=== PATIENT | female | born 1980 | race Caucasian/White ===

== ENCOUNTER → 2022-08-22 10:17 | Outpatient (BNVA) | payer MEDICARE, SELFPAY | PROVIDERS: Visit Provider Family Medicine | DX: I10 Essential (primary) hypertension (principal); E11.9 Type 2 diabetes mellitus without complications | CPT/HCPCS: 80053; 80061; 83036; 84439; 84443; 85025 ==

== ENCOUNTER → 2022-12-08 09:59 | Outpatient (BNVA) | payer MEDICARE, MEDICAID, SELFPAY | PROVIDERS: Visit Provider Nurse Practitioner Family | DX: E03.9 Hypothyroidism, unspecified (principal); E11.9 Type 2 diabetes mellitus without complications | CPT/HCPCS: 80053; 81000; 84443; 85025 ==

== ENCOUNTER → 2023-02-13 08:43 | Outpatient (BNVA) | payer MEDICARE, MEDICAID, SELFPAY | PROVIDERS: PCP Family Medicine; Visit Provider Family Medicine | DX: E03.9 Hypothyroidism, unspecified (principal); E11.9 Type 2 diabetes mellitus without complications; G43.909 Migraine, unspecified, not intractable, without status migrainosus | CPT/HCPCS: 80053; 83036; 84439; 84443 ==

== ENCOUNTER → 2023-02-22 14:33 | Outpatient (BNVA) | payer MEDICARE, MEDICAID, SELFPAY | PROVIDERS: PCP Family Medicine; Referring Provider Family Medicine; Visit Provider Nurse Practitioner Family | DX: L05.91 Pilonidal cyst without abscess (principal); L73.2 Hidradenitis suppurativa; D22.5 Melanocytic nevi of trunk; L81.4 Other melanin hyperpigmentation | CPT/HCPCS: 99204 ==

== ENCOUNTER → 2023-03-07 10:16 | Outpatient (BNVA) | payer MEDICARE, MEDICAID, SELFPAY | PROVIDERS: PCP Family Medicine; Visit Provider Psychiatry & Neurology Neurology | DX: Z87.828 Personal history of other (healed) physical injury and trauma (principal) | CPT/HCPCS: 99203 ==

== ENCOUNTER → 2023-03-13 12:33 | Outpatient (BNVA) | payer MEDICARE, MEDICAID, SELFPAY | PROVIDERS: PCP Family Medicine; Referring Provider Nurse Practitioner Family; Visit Provider Surgery | DX: L73.2 Hidradenitis suppurativa (principal); L05.91 Pilonidal cyst without abscess | CPT/HCPCS: 99204 ==

== ENCOUNTER 2023-04-29 14:25 | Emergency (ER) | payer MEDICARE, MEDICAID, SELFPAY ==
--- NOTE | 2023-04-29 14:31 | ECG_ITS ---
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 Measurements Intervals [place] Rate: 86 P: 53 TN: 149 QRS: 66 QRSD: 89 T: 63 QT: 333 QTc: 399 Interpretive Statements SINUS RHYTHM LOW QRS VOLTAGE IN PRECORDIAL LEADS [QRS DEFLECTION < 1.0 mV IN CHEST LEADS] No previous ECG available for comparison Electronically Signed On 04-30-2023 16:26:05 PATENT LAWYER by Sascha Walls M.D. [id number]
--- NOTE | 2023-04-29 14:31 | XRR_ITS ---
PROCEDURE INFORMATION: Exam: XR Chest Exam date and time: 04/29/2023 2:43 PM Age: 42 years old Clinical indication: Chest wall pain; Patient HX: Chest pain TECHNIQUE: Imaging protocol: Radiologic exam of the chest. Views: 1 view. COMPARISON: No relevant prior studies available. FINDINGS: Lungs: Unremarkable. No consolidation. Pleural spaces: Unremarkable. No pleural effusion. No pneumothorax. Heart/Mediastinum: Unremarkable. No cardiomegaly. Bones/joints: Unremarkable. XR/XR chest 1V portable [id number] IMPRESSION: No acute findings.
[2023-04-29 14:32] VITALS: BP 111/65; PULSE 99; RESP 18; TEMP 36.8; O2SAT 99; BMI 41.3
--- NOTE | 2023-04-29 15:05 | ED_ITS ---
HPI - General Adult 2 General: Chief complaint: Chest Pain Stated complaint: Chest Pain Time Seen by Provider: 04/29/23 14:32 Source: patient Mode of arrival: ambulatory Limitations: no limitations History of Present Illness: Patient is a 42-year-old female here for multiple medical complaints. She states she has an abscess to her left breast. She states she chronically has these that seem to come and go on their own. She does have a history of hidradenitis suppurativa. She is reporting pain all over my body and reported chest pain in triage. She states approximately 6 days ago she took an oxycodone from a family/friend off the street and feels like they were attempting to kill her because she states over the next 5 days she was in and out of it . She states that her family whom she resides with told her that she would come and go from the house (arrive, shower, change clothes, and then leave again) but patient states she does not remember any of this. 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 She states the way she feels now is the same way she felt when she overdosed on heroin. She arrives with stable vital signs. Onset (ago): day(s) Relieving factors: none Exacerbating factors: none Associated symptoms: Deny chest pain, dyspnea, headache(s), malaise, nausea, palpitations, syncope or vomiting Treatments prior to arrival: none Review of Systems 2 Const: Reports: body aches; Denies: fever(s), chills, fatigue or malaise Eyes: Denies: change in vision, blurry vision, photophobia, floaters or seeing flashes ENMT: Denies: throat pain, odynophagia, ear or mastoid pain, nasal discharge, nasal congestion or sinus pain Card: Reports: swelling of feet/ankles; Denies: chest pain, palpitations, lightheadedness, syncope, pre-syncope, dyspnea on exertion, orthopnea, leg pain with exertion or acrocyanosis Resp: Denies: dyspnea, productive cough, non-productive cough, wheezing, pain on inspiration, hemoptysis or chest congestion GI: Denies: abdominal pain, nausea, vomiting or diarrhea : Denies: flank pain, difficulty voiding, dysuria, urinary frequency or urinary urgency Musc: Reports: extremity pain and extremity swelling; Denies: neck pain, back pain, joint pain or joint swelling Skin/Breast: Reports: other (abscess to L breast) Neuro: Denies: headache(s), numbness in extremities, weakness in extremities or sensory changes PFSH ED 2 PFSH: Medical History History of gallbladder disease Abdominal pain Type 2 diabetes mellitus Depression Anxiety Hypertension Hypercholesteremia Hidradenitis suppurativa Neuropathy Asthma Surgical History History of tonsillectomy History of surgery on lower extremity Family History Grandmother No problems noted. Grandfather Cancer Maternal-colon Father Cancer, Onset Age: 49 pancreatic Family/Other Cancer Maternal aunt-breast and bone Other Bleeding disorder Dementia Diabetes Hyperlipidemia Hypertension Lung disease Stroke Denies family history of CAD (coronary artery disease) Clotting disorder Psychiatric illness Chronic kidney disease (CKD) Anesthesia complication Social History Smoking and tobacco/nicotine status: current some day tobacco/nicotine user Alcohol intake: never Substance/Drug Use: former Lives independently: Yes Marital status: Number of children: 2 Current occupational status: employed and disabled Current occupation: [employer] Special izaiah needs: No Agree to transfusion: Yes Physical Exam 2 Const: COMMON NORMALS: patient oriented x3, no limitations, alert and well nourished GENERAL APPEARANCE: cooperative NUTRITIONAL APPEARANCE: obese ORIENTATION/CONSCIOUSNESS: Yes awake, Yes oriented to person, Yes oriented to place and Yes oriented to time OTHER: hyperactive, fidgeting HENMT: COMMON NORMALS: normocephalic and atraumatic HEAD & SCALP: normal to inspection, normocephalic and atraumatic FACE & SINUS: normal facial exam Eye: COMMON NORMALS: Equal, round and reactive pupils present and EOMs intact bilaterally GENERAL EYE: appearance normal, both eyes and all related structures and normal light reflex PUPIL: Yes Equal, round and reactive pupils present DIRECT OPHTHALMOSCOPY: Yes normal light reflex Neck/C-Spine: COMMON NORMALS: no lymphadenopathy and no meningeal signs Chest: Breast/axilla inspection: Yes skin changes (see below) OTHER: quarter sized abscess to L medial breast with a scant amount of purulent drainage noted; no obvious underlying fluctuance Resp: COMMON NORMALS: normal respiratory effort and clear to auscultation bilaterally AUSCULTATION: clear to auscultation bilaterally Cardio: COMMON NORMALS: regular rate and regular rhythm RATE: regular rate RHYTHM: regular rhythm Back/Pelvis: COMMON NORMALS: thoracic and lumbar spine normal to inspection Extremity: COMMON NORMALS: normal to inspection, full ROM, capillary refill normal, no joint enlargement, no clubbing, cyanosis or edema, no calf tenderness and no pedal edema NARRATIVE EXTREMITY EXAM: reporting bilateral hand swelling although I do not appreciate anything clinically; she reports her hands are discolored-few areas of dusky appearance that wipes off with alcohol pad and most likely dye from her dark blue jeans; pulses throughout extremity normal GENERAL: Yes normal exam except as noted Neuro: DRU COMA SCALE: document GCS findings [place] coma scale eye opening: Spontaneous Dru coma scale verbal response: Orientated Dru coma scale motor response: Obey commands Dru coma scale total score: 15 COMMON NORMALS: patient oriented x3, CN's II-XII intact bilaterally, moves all extremities, no focal motor deficits, no sensory deficits noted and gait normal SENSORIUM/ORIENTATION: Yes alert, Yes oriented to person, Yes oriented to place and Yes oriented to time MENINGEAL SIGNS: Yes no meningeal signs Psych: OTHER: denies SI/HI Skin: COMMON NORMALS: no rashes or lesions noted NARRATIVE SKIN EXAM: several scabs, picked scabs, and scars GENERAL SKIN EXAM: no rashes or lesions noted Course 2 Vital Signs: Vital signs: Vital Signs Temperature 98.3 F 04/29/23 14:32 Pulse Rate 83 04/29/23 15:56 Respiratory Rate 18 04/29/23 14:32 Blood Pressure 125/74 04/29/23 15:56 Pulse Oximetry 100 04/29/23 15:56 Oxygen Delivery Me thod Room Air 04/29/23 15:56 [facility] - General Adult Medical Decision Making Patient arrives in no acute distress with stable vital signs. She is hyperactive and fidgety. Blood work overall is nonactionable. Her tox screen is positive for amphetamines and marijuana. CXR and EKG are unremarkable. She did have a draining left breast abscess. Culture obtained. She will be placed on doxycycline. Return ED precautions given. She is stable for discharge. Medical Records I reviewed the patient's medical records. Lab Data I reviewed the patient's lab results. 04/29/23 15:44 04/29/23 15:44 Radiology Impressions Chest X-Ray 04/29/23 14:31 IMPRESSION: No acute findings. Laboratory Results WBC 10.42 10^3/uL (3.29-11.43) 04/29/23 15:44 RBC 4.96 10^6/uL (3.85-5.65) 04/29/23 15:44 Hgb 12.60 g/dL (11.27-16.99) 04/29/23 15:44 Hct 40.3 % (36-47) 04/29/23 15:44 MCV 81.3 fl (85-98) L 04/29/23 15:44 MCH 25.4 pg (27-33) L 04/29/23 15:44 MCHC 31.3 g/dL (30-55) 04/29/23 15:44 RDW 15.5 % (12.1-15.1) H 04/29/23 15:44 Plt Count 364 10^3/cmm (157-399) 04/29/23 15:44 MPV 10.3 fL (7.4-10.4) 04/29/23 15:44 Neut % (Auto) 61.4 % 04/29/23 15:44 Lymph % (Auto) 31.9 % 04/29/23 15:44 Arthur % (Auto) 4.2 % 04/29/23 15:44 Eos % (Auto) 1.9 % 04/29/23 15:44 Baso % (Auto) 0.3 % 04/29/23 15:44 Neut # (Auto) 6.40 10^3/uL (1.8-7.7) 04/29/23 15:44 Lymph # (Auto) 3.3 10^3/uL (0.8-4.8) 04/29/23 15:44 Arthur # (Auto) 0.4 10^3/uL (0.2-0.9) 04/29/23 15:44 Eos # (Auto) 0.2 10^3/uL (0.0-0.8) 04/29/23 15:44 Baso # (Auto) 0.0 10^3/uL (0.0-0.1) 04/29/23 15:44 Nucleated RBC % (auto) 0 % 04/29/23 15:44 Nucleated RBCs # 0.0 /100WBC 04/29/23 15:44 Sodium 139 mmol/L (136-145) 04/29/23 15:44 Potassium 3.4 mmol/L (3.5-5.1) L 04/29/23 15:44 Chloride 103 mmol/L (98-107) 04/29/23 15:44 Carbon Dioxide 23 mmol/L (22-29) 04/29/23 15:44 Anion Gap 16.4 (5-19) 04/29/23 15:44 BUN 4 mg/dL (6-20) L 04/29/23 15:44 Creatinine 0.8 mg/dL (0.5-0.9) 04/29/23 15:44 GFR Calculation 79.4 mL/min (90-130) L 04/29/23 15:44 Glucose 93 mg/dL (65-115) 04/29/23 15:44 Calculated Osmolality 285 mOsm/kg (285-295) 04/29/23 15:44 Calcium 9.0 mg/dL (8.5-10.5) 04/29/23 15:44 Total Bilirubin 0.5 mg/dL (0.15-1.2) 04/29/23 15:44 AST 13 U/L (0-32) 04/29/23 15:44 ALT 14 U/L (0-33) 04/29/23 15:44 Alkaline Phosphatase 66 U/L (35-105) 04/29/23 15:44 Troponin T Baseline < 6 ng/L (0-10) 04/29/23 15:44 Total Protein 7.3 g/dL (6.6-8.7) 04/29/23 15:44 Albumin 4.3 g/dL (3.5-5.2) 04/29/23 15:44 Globulin 3.0 g/dL (1.3-4.6) 04/29/23 15:44 Lipase 19 U/L (13-60) 04/29/23 15:44 HCG, Qual Negative (Negative) 04/29/23 15:44 Urine Opiates Screen Negative ng/mL (Negative) 04/29/23 15:30 Ur Barbiturates Screen Negative ng/mL (Negative) 04/29/23 15:30 Ur Phencyclidine Scrn Negative ng/mL (Negative) 04/29/23 15:30 Ur Amphetamines Screen Positive ng/mL (Negative) H 04/29/23 15:30 U Benzodiazepines Scrn Negative ng/mL (Negative) 04/29/23 15:30 Urine Cocaine Screen Negative ng/mL (Negative) 04/29/23 15:30 U Marijuana (THC) Screen Positive ng/mL (Negative) H 04/29/23 15:30 All radiology interpretation(s) finalized by discharge Discharge Plan Discharge Patient Disposition: Home Clinical Impression: Abscess of breast, Amphetamine use Condition: Stable Prescriptions: New doxycycline monohydrate 100 mg capsule 100 mg PO Q12H 7 Days Qty: 14 0RF No Action Lacto no.[id number]-larch 25B cell-25B cell-50 mg capsule PO pantoprazole [Protonix] 40 mg tablet,delayed release (DR/EC) 40 mg PO BID 60 Days Qty: 120 1RF ergocalciferol (vitamin D2) [Vitamin D2] 1,250 mcg (50,000 unit) capsule 1,250 mcg PO DAILY famotidine 20 mg tablet 20 mg PO DAILY Qty: 90 1RF aripiprazole [Abilify] 30 mg tablet 30 mg PO DAILY Qty: 90 1RF nortriptyline 50 mg capsule 50 mg PO DAILY Qty: 90 1RF atorvastatin 10 mg tablet 10 mg PO DAILY Qty: 90 1RF benztropine 1 mg tablet 1 mg PO BID Qty: 180 0RF clonidine HCl 0.2 mg tablet 0.2 mg PO BID Qty: 180 1RF fluoxetine 40 mg capsule 40 mg PO DAILY Qty: 60 1RF clindamycin phosphate 1 % solution 1 applic topical BID Qty: 60 1RF levothyroxine 112 mcg tablet 112 mcg PO DAILY Qty: 90 0RF spironolactone 50 mg tablet 50 mg PO DAILY Qty: 90 1RF buspirone 15 mg tablet 30 mg PO BID Qty: 120 0RF Nurtec ODT 75 mg tablet,disintegrating 75 mg PO ONCE PRN (Reason: migraine headache) Qty: 10 0RF gabapentin 300 mg capsule See Rx Instructions .ROUTE .COMPLEX Qty: 180 1RF Dose Instruction: TAKE 2 CAPSULES BY MOUTH TWICE DAILY Rx Instructions: TAKE 2 CAPSULES BY MOUTH TWICE DAILY albuterol sulfate 90 mcg/actuation HFA aerosol inhaler See Rx Instructions .ROUTE .COMPLEX Qty: 8.5 1RF Dose Instruction: USE ONE INHALATION BY MOUTH 4 TIMES DAILY NEEDED FOR SHORTNESS OF BREATH OR WHEEZING Rx Instructions: USE ONE INHALATION BY MOUTH 4 TIMES DAILY NEEDED FOR SHORTNESS OF BREATH OR WHEEZING budesonide-formoterol [Symbicort] 160-4.5 mcg/actuation HFA aerosol inhaler See Rx Instructions .ROUTE .COMPLEX Qty: 10.2 1RF Dose Instruction: USE ONE INHALATION BY MOUTH TWICE DAILY Rx Instructions: USE ONE INHALATION BY MOUTH TWICE DAILY Discharge Orders: Discharge ED (Routine); Ordered 04/29/23 Ordered By: Treasure Collazo Referrals: Dheeraj Sol MD [Primary Care Provider] - Patient Instructions: Abscess (ED) Activity Restrictions/Additional Instructions: As we discussed your urine drug screen today was positive for amphetamines and marijuana. We will place you on antibiotics for your left breast abscess. If this does not improve over the next 3 to 4 days you need to follow-up with your primary care provider. The Coding Level of Care Code ED Filter Tender for Marimar Nicholas
[2023-04-29 15:53] LABS: Basophils % 0.3 %; Eosinophils # 0.2 10^3/uL (0.0-0.8); Eosinophils % 1.9 %; Hematocrit 40.3 % (36-47); Lymphocytes # 3.3 10^3/uL (0.8-4.8); Lymphocytes % 31.9 %; Mean Corpuscular HGB Conc 31.3 g/dL (30-55); Mean Corpuscular Hemoglobin 25.4 pg (27-33); Mean Corpuscular Volume 81.3 fl (85-98); Mean Platelet Volume 10.3 fL (7.4-10.4); Monocytes # 0.4 10^3/uL (0.2-0.9); Monocytes % 4.2 %; Neutrophils % 61.4 %; Nucleated Red Blood Cells % 0 %; Platelet Count 364 10^3/cmm (157-399); Red Blood Count 4.96 10^6/uL (3.85-5.65); Red Cell Distribution Width 15.5 % (12.1-15.1); White Blood Count 10.42 10^3/uL (3.29-11.43)
[2023-04-29 15:56] VITALS: BP 125/74; PULSE 83; O2SAT 100
[2023-04-29 16:18] LABS: HCG, Serum Qual Negative (Negative)
[2023-04-29 16:22] LABS: Troponin(5th) Baseline < 6 ng/L (0-10)
--- NOTE | 2023-04-29 16:31 | ECG_ITS ---
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 Measurements Intervals [place] Rate: 76 P: 46 HI: 160 QRS: 55 QRSD: 90 T: 54 QT: 360 QTc: 405 Interpretive Statements SINUS RHYTHM LOW QRS VOLTAGE IN PRECORDIAL LEADS [QRS DEFLECTION < 1.0 mV IN CHEST LEADS] Compared to ECG 04/29/2023 14:32:41 No significant changes Electronically Signed On 05-01-2023 10:54:24 PLATE ROLLER by Sascha Walls M.D. [id number]
[2023-04-29 16:34] LABS: Amphetamines Screen Urine Positive (Negative); Barbiturates Screen Urine Negative (Negative); Benzodiazepines Screen Urine Negative (Negative); Cocaine Screen Urine Negative (Negative); Opiate Screen Urine Negative (Negative); PCP Screen Urine Negative (Negative); THC Screen Urine Positive (Negative)
[2023-04-29 16:53] LABS: Alanine Aminotransferase 14 U/L (0-33); Albumin Level 4.3 g/dL (3.5-5.2); Alkaline Phosphatase 66 U/L (35-105); Anion Gap 16.4 (5-19); Aspartate Amino Transferase 13 U/L (0-32); Blood Urea Nitrogen 4 mg/dL (6-20); Carbon Dioxide 23 mmol/L (22-29); Chloride 103 mmol/L (98-107); Glomerular Filtration Rate 79.4 mL/min (90-130); Glucose 93 mg/dL (65-115); Lipase 19 U/L (13-60); Osmolality Calculated 285 mOsm/kg (285-295); Potassium 3.4 mmol/L (3.5-5.1); Sodium 139 mmol/L (136-145); Total Bilirubin 0.5 mg/dL (0.15-1.2); Total Protein 7.3 g/dL (6.6-8.7)
[2023-04-29 17:13] VITALS: BP 117/74; PULSE 90; O2SAT 100
== END 2023-04-29 17:14 | disposition home or self-care (01) ==
PROVIDERS: Emergency Medicine; Emergency Provider Physician Assistant; PCP Family Medicine
DX: N61.1 Abscess of the breast and nipple (principal); F15.90 Other stimulant use, unspecified, uncomplicated; I10 Essential (primary) hypertension; E11.40 Type 2 diabetes mellitus with diabetic neuropathy, unspecified; Z72.0 Tobacco use
CPT/HCPCS: 36415; 71045; 80053; 80306; 83690; 84484; 84703; 85025; 87070; 87075; 87077; 87186; 87205; 93005; 99285

== ENCOUNTER → 2023-05-25 11:23 | Outpatient (BNVA) | payer MEDICARE, MEDICAID, SELFPAY | PROVIDERS: PCP Family Medicine; Visit Provider Podiatrist Foot & Ankle Surgery | DX: S93.491A Sprain of other ligament of right ankle, initial encounter; X58.XXXA Exposure to other specified factors, initial encounter | CPT/HCPCS: 73610; 99203 ==

== ENCOUNTER 2023-06-13 15:47 | Outpatient (CLI) | payer MEDICARE, MEDICAID, SELFPAY | END 2023-06-13 15:48 | disposition home or self-care (01) | LOC: SPT 15:48 | PROVIDERS: PCP Family Medicine; Visit Provider Podiatrist Foot & Ankle Surgery | DX: Z46.89 Encounter for fitting and adjustment of other specified devices (principal); S93.491D Sprain of other ligament of right ankle, subsequent encounter; X58.XXXD Exposure to other specified factors, subsequent encounter; S93.491A Sprain of other ligament of right ankle, initial encounter; X58.XXXA Exposure to other specified factors, initial encounter | CPT/HCPCS: 97760; 99213; L1902 ==

== ENCOUNTER → 2023-07-10 14:33 | Outpatient (BNVA) | payer MEDICARE, MEDICAID, SELFPAY | PROVIDERS: PCP Family Medicine; Visit Provider Podiatrist Foot & Ankle Surgery | DX: S93.491D Sprain of other ligament of right ankle, subsequent encounter (principal); X58.XXXD Exposure to other specified factors, subsequent encounter | CPT/HCPCS: 99213 ==

== ENCOUNTER 2023-07-14 06:00 | Outpatient (RCR) | payer MEDICARE, MEDICAID, SELFPAY | END 2023-07-23 23:59 | disposition home or self-care (01) | LOC: WPT 06:00 | PROVIDERS: Visit Provider Podiatrist Foot & Ankle Surgery | DX: S93.401D Sprain of unspecified ligament of right ankle, subsequent encounter (principal); X58.XXXD Exposure to other specified factors, subsequent encounter | CPT/HCPCS: 97110; 97112; 97140; 97161 ==

== ENCOUNTER 2023-07-24 06:00 | Outpatient (RCR) | payer MEDICARE, MEDICAID, SELFPAY | END 2023-08-22 23:59 | disposition home or self-care (01) | LOC: WPT 06:00 | PROVIDERS: PCP Family Medicine; Visit Provider Podiatrist Foot & Ankle Surgery | DX: S93.401D Sprain of unspecified ligament of right ankle, subsequent encounter (principal); X58.XXXD Exposure to other specified factors, subsequent encounter | CPT/HCPCS: 97110; 97112; 97530 ==

== ENCOUNTER → 2023-08-02 11:46 | Outpatient (BNVA) | payer MEDICARE, MEDICAID, SELFPAY | PROVIDERS: PCP Family Medicine; Visit Provider Family Medicine | DX: F31.9 Bipolar disorder, unspecified (principal) | CPT/HCPCS: 80053 ==

== ENCOUNTER → 2023-08-16 15:03 | Outpatient (BNVA) | payer MEDICARE, MEDICAID, SELFPAY | PROVIDERS: PCP Family Medicine; Visit Provider Podiatrist Foot & Ankle Surgery | DX: S93.491D Sprain of other ligament of right ankle, subsequent encounter (principal); X58.XXXD Exposure to other specified factors, subsequent encounter | CPT/HCPCS: 99213 ==

== ENCOUNTER 2023-08-23 06:00 | Outpatient (RCR) | payer MEDICARE, MEDICAID, SELFPAY | END 2023-09-22 23:59 | disposition home or self-care (01) | LOC: WPT 06:00 | PROVIDERS: PCP Family Medicine; Visit Provider Podiatrist Foot & Ankle Surgery | DX: S93.401D Sprain of unspecified ligament of right ankle, subsequent encounter (principal); X58.XXXD Exposure to other specified factors, subsequent encounter | CPT/HCPCS: 97110; 97112; 97140; 97530 ==

== ENCOUNTER → 2023-09-21 15:24 | Outpatient (BNVA) | payer MEDICARE, OTHER, SELFPAY | PROVIDERS: PCP Family Medicine; Visit Provider Dermatology | DX: D48.5 Neoplasm of uncertain behavior of skin (principal); L05.91 Pilonidal cyst without abscess; L73.2 Hidradenitis suppurativa | CPT/HCPCS: 11102; 99214 ==

== ENCOUNTER → 2023-10-09 09:38 | Outpatient (BNVA) | payer MEDICAID, MEDICARE, SELFPAY | PROVIDERS: PCP Family Medicine; Visit Provider Dermatology | DX: D48.5 Neoplasm of uncertain behavior of skin (principal); L73.2 Hidradenitis suppurativa | CPT/HCPCS: 17000; 99213 ==

== ENCOUNTER 2023-11-01 08:48 | Outpatient (CLI) | payer MEDICARE, MEDICAID, SELFPAY ==
[2023-11-01 09:52] LABS: Alanine Aminotransferase 12 U/L (0-33); Alkaline Phosphatase 71 U/L (35-105); Aspartate Amino Transferase 15 U/L (0-32); Blood Urea Nitrogen 15 mg/dL (6-20); Calcium 8.8 mg/dL (8.5-10.5); Carbon Dioxide 24 mmol/L (22-29); Chloride 100 mmol/L (98-107); Globulin 3.3 g/dL (1.3-4.6); Glomerular Filtration Rate 92.2 mL/min (90-130); Glucose 106 mg/dL (65-115); Osmolality Calculated 285 mOsm/kg (285-295); Sodium 137 mmol/L (136-145); Thyroid Stimulating Hormone 9.28 uIU/mL (0.27-4.20); Total Bilirubin 0.3 mg/dL (0.15-1.2); Total Protein 7.3 g/dL (6.6-8.7)
[2023-11-01 09:54] LABS: Anion Gap 17.3 (5-19); Potassium 4.3 mmol/L (3.5-5.1)
== END 2023-11-01 08:49 | disposition home or self-care (01) ==
PROVIDERS: PCP Family Medicine; Visit Provider Family Medicine
DX: E03.9 Hypothyroidism, unspecified (principal)
CPT/HCPCS: 80053; 84443

== ENCOUNTER 2024-02-14 03:32 | Inpatient (IN) | payer MEDICARE, MEDICAID, SELFPAY ==
[2024-02-14 03:47] VITALS: BP 132/85; PULSE 92; RESP 16; TEMP 36.7; O2SAT 98; BMI 42.5
--- NOTE | 2024-02-14 03:49 | W.ED.PSYCHS ---
Documented by User: Quintin Bahena DO 02/14/24 03:51 HPI - Psych General: Chief Complaint: Psychiatric Symptoms Stated Complaint: MHE Time Seen by Provider: 02/14/24 03:36 History of Present Illness: Patient presents to the ER by EMS for suicidal ideation. Patient says that she had to rope wrapped around her neck was getting ready to commit suicide when her called EMS and talked her down from it. Patient says she has been hospitalized multiple times usually in [place]. She is on multiple psychiatric medicines. She says she misses doses pretty routinely. She is on Abilify extended release shocked. She says this controls her suicidal ideation usually the first 2 weeks after she gets it but then the second 2 weeks has been she goes downhill. Related Data Previous Rx's Medication Instructions Recorded clindamycin phosphate 1 % topical 1 applic topical BID #60 mL 01/06/23 solution pantoprazole 40 mg tablet,delayed 40 mg PO BID 60 days #120 tabs 01/18/23 release (Protonix) ASO #1 ea 06/13/23 spironolactone 50 mg tablet 50 mg PO DAILY #90 tabs 09/01/23 ubrogepant 50 mg tablet (Ubrelvy) 50 mg PO ONCE PRN migraine 10/02/23 headache #20 tabs levothyroxine 125 mcg tablet 125 mcg PO DAILY #60 tabs 11/02/23 aripiprazole 400 mg intramuscular 400 mg IM Q28D #1 ea 01/24/24 suspension,extended release (Abilify Maintena) benztropine 1 mg tablet 1 mg PO BID #60 tabs 01/24/24 doxepin 50 mg capsule 50 mg PO .HS #30 caps 01/24/24 hydroxyzine pamoate 50 mg capsule 50 mg PO QID PRN anxiety #120 caps 01/24/24 Symbicort 160 mcg-4.5 See Rx Instructions .Route 01/31/24 mcg/actuation HFA aerosol inhaler .COMPLEX #11 grams (budesonide-formoterol) albuterol sulfate 90 mcg/actuation See Rx Instructions .Route 01/31/24 aerosol inhaler .COMPLEX #8.5 grams venlafaxine 150 mg 300 mg (2 x 150 mg) PO DAILY #30 01/31/24 capsule,extended release 24 hr caps (Effexor XR) Allergies Allergy/AdvReac Type Severity Reaction Status Date / Time acetaminophen [From Tylenol] Allergy Severe facial Verified 01/31/24 11:32 swelling lisinopril Allergy Severe facial Verified 01/31/24 11:32 swelling meperidine [From Demerol] Allergy Unknown Unknown Verified 01/31/24 11:32 NSAIDS (Non-Steroidal Allergy Unknown Verified 01/31/24 11:32 Anti-Inflamma Review of Systems General: Reports: 10 or more systems reviewed and unremarkable except in HPI and below PFSH ED PFSH: Medical History Borderline personality disorder Psychiatric care PTSD (post-traumatic stress disorder) Bipolar 1 disorder History of gallbladder disease Abdominal pain Type 2 diabetes mellitus Depression Anxiety Hypertension Hypercholesteremia Hidradenitis suppurativa Neuropathy Asthma Surgical History History of tonsillectomy History of surgery on lower extremity Family History Grandmother No problems noted. Grandfather Cancer Maternal-colon Father Cancer, Onset Age: 49 pancreatic Family/Other Cancer Maternal aunt-breast and bone Other Bleeding disorder Dementia Diabetes Hyperlipidemia Hypertension Lung disease Stroke Denies family history of CAD (coronary artery disease) Clotting disorder Psychiatric illness Chronic kidney disease (CKD) Anesthesia complication Social History Smoking and tobacco/nicotine status: current every day tobacco/nicotine user cigarettes Packs smoked per day: 0.5 Alcohol intake: never Substance/Drug Use: current Substance/Drug use frequency: daily Lives independently: Yes Marital status: Number of children: 2 Current occupational status: employed and disabled Current occupation: [employer] Special izaiah needs: No Agree to transfusion: Yes Physical Exam Const: COMMON NORMALS: no acute distress, average body habitus, patient oriented x3, no limitations, healthy appearing, alert and well nourished HENMT: COMMON NORMALS: normocephalic, atraumatic, hearing grossly normal bilaterally, external ears normal, Normal external nose present and moist oral mucous membranes HEAD & SCALP: normocephalic and atraumatic NOSE: Normal external nose present EXTERNAL EAR: Yes external ears normal Neck/C-Spine: COMMON NORMALS: no JVD Chest: COMMONS NORMALS: normal inspection of the chest and normal palpation of entire chest wall Resp: COMMON NORMALS: normal respiratory effort, No retractions, No use of accessory muscles and clear to auscultation bilaterally AUSCULTATION: clear to auscultation bilaterally Cardio: COMMON NORMALS: no JVD, regular rate, regular rhythm, S1 normal heart sound present, S2 normal heart sound present, No gallops present (Cardio), No clicks present (Cardio), No murmurs present (Cardio) and No rub (Cardio) RATE: regular rate RHYTHM: regular rhythm HEART SOUNDS: S1 normal heart sound present and S2 normal heart sound present GI: COMMON NORMALS: Normal to inspection, nondistended, normoactive bowel sounds present, Soft to palpation, non-tender, No hepatosplenomegaly present and no masses PALPATION: Yes Soft to palpation and Yes No hepatosplenomegaly present Neuro: COMMON NORMALS: patient oriented x3 SENSORIUM/ORIENTATION: Yes alert Course Vital Signs: Vital signs: Vital Signs Temperature 97.8 F 02/14/24 06:46 Pulse Rate 91 02/14/24 06:46 Respiratory Rate 18 02/14/24 06:46 Blood Pressure 136/89 02/14/24 06:46 Pulse Oximetry 97 02/14/24 06:46 Oxygen Delivery Me thod Room Air 02/14/24 06:46 MDM - Psych Medical Records I reviewed the patient's medical records. Lab Data I reviewed the patient's lab results. 02/14/24 04:29 02/14/24 04:29 Laboratory Results WBC 11.16 10^3/uL (3.29-11.43) 02/14/24 04:29 RBC 4.83 10^6/uL (3.85-5.65) 02/14/24 04:29 Hgb 11.80 g/dL (11.27-16.99) 02/14/24 04:29 Hct 37.5 % (36-47) 02/14/24 04:29 MCV 77.6 fl (85-98) L 02/14/24 04:29 MCH 24.4 pg (27-33) L 02/14/24 04: MCHC 31.5 g/dL (30-55) 02/14/24 04:29 RDW 16.9 % (12.1-15.1) H 02/14/24 04:29 Plt Count 387 10^3/cmm (157-399) 02/14/24 04:29 MPV 9.5 fL (7.4-10.4) 02/14/24 04:29 Neut % (Auto) 68.6 % 02/14/24 04:29 Lymph % (Auto) 25.4 % 02/14/24 04:29 [place] % (Auto) 3.9 % 02/14/24 04:29 Eos % (Auto) 1.3 % 02/14/24 04:29 Baso % (Auto) 0.4 % 02/14/24 04:29 Neut # (Auto) 7.64 10^3/uL (1.8-7.7) 02/14/24 04:29 Lymph # (Auto) 2.8 10^3/uL (0.8-4.8) 02/14/24 04:29 [place] # (Auto) 0.4 10^3/uL (0.2-0.9) 02/14/24 04:29 Eos # (Auto) 0.2 10^3/uL (0.0-0.8) 02/14/24 04:29 Baso # (Auto) 0.1 10^3/uL (0.0-0.1) 02/14/24 04:29 Nucleated RBC % (auto) 0 % 02/14/24 04:29 Nucleated RBCs # 0.0 /100WBC 02/14/24 04:29 Sodium 139 mmol/L (136-145) 02/14/24 04:29 Potassium 3.8 mmol/L (3.5-5.1) 02/14/24 04:29 Chloride 101 mmol/L (98-107) 02/14/24 04:29 Carbon Dioxide 28 mmol/L (22-29) 02/14/24 04:29 Anion Gap 13.8 (5-19) 02/14/24 04:29 BUN 8 mg/dL (6-20) 02/14/24 04:29 Creatinine 0.8 mg/dL (0.5-0.9) 02/14/24 04:29 GFR Calculation 79.0 mL/min (90-130) L 02/14/24 04:29 Glucose 136 mg/dL (65-115) H 02/14/24 04:29 Calculated Osmolality 288 mOsm/kg (285-295) 02/14/24 04:29 Calcium 8.6 mg/dL (8.5-10.5) 02/14/24 04:29 Total Bilirubin 0.2 mg/dL (0.15-1.2) 02/14/24 04:29 AST 10 U/L (0-32) 02/14/24 04:29 ALT 9 U/L (0-33) 02/14/24 04:29 Alkaline Phosphatase 69 U/L (35-105) 02/14/24 04:29 Total Protein 7.2 g/dL (6.6-8.7) 02/14/24 04:29 Albumin 4.2 g/dL (3.5-5.2) 02/14/24 04:29 Globulin 3.0 g/dL (1.3-4.6) 02/14/24 04:29 HCG, Qual Negative (Negative) 02/14/24 03:45 Urine Color Yellow (Yellow) 02/14/24 03:45 Urine Appearance Clear (CLEAR) 02/14/24 03:45 Urine pH 5.5 (5-7) 02/14/24 03:45 Ur Specific [place] 1.009 (1.005-1.030) 02/14/24 03:45 Urine Protein Negative (Negative) 02/14/24 03:45 Urine Glucose (UA) Negative (Normal) 02/14/24 03:45 Urine Ketones Negative (Negative) 02/14/24 03:45 Urine Blood Negative (Negative) 02/14/24 03:45 Urine Nitrate Negative (Negative) 02/14/24 03:45 Urine Bilirubin Negative (Negative) 02/14/24 03:45 Urine Urobilinogen 0.2 mg/dL (Negative) 02/14/24 03:45 Ur Leukocyte Esterase Negative (Negative) 02/14/24 03:45 Urine RBC 0-2 /hpf (0-2) 02/14/24 03:45 Urine WBC 0-5 /hpf (0-5) 02/14/24 03:45 Ur Squamous Epith Cells 0-5 /hpf (0-5) 02/14/24 03:45 Amorphous Sediment Not Reportable 02/14/24 03:45 Urine Bacteria None seen /hpf (NONE) 02/14/24 03:45 Hyaline Casts 0-4 /lpf H 02/14/24 03:45 Salicylates < 0.3 mg/dL (3-10) L 02/14/24 04:29 Urine Opiates Screen Negative ng/mL (Negative) 02/14/24 03:45 Acetaminophen < 5.0 ug/mL (10-30) L 02/14/24 04:29 Ur Barbiturates Screen Negative ng/mL (Negative) 02/14/24 03:45 Ur Phencyclidine Scrn Negative ng/mL (Negative) 02/14/24 03:45 Ur Amphetamines Screen Positive ng/mL (Negative) H 02/14/24 03:45 U Benzodiazepines Scrn Negative ng/mL (Negative) 02/14/24 03:45 Urine Cocaine Screen Negative ng/mL (Negative) 02/14/24 03:45 U Marijuana (THC) Screen Positive ng/mL (Negative) H 02/14/24 03:45 Ethyl Alcohol < 10 mg/dL (0-10) 02/14/24 04:29 No radiology studies performed this visit Discharge Plan Discharge Admit Provider: Jamey Mcdonald Clinical Impression: Suicidal ideation Condition: Stable Sign Out Sign Out Data: Patient Sign Out occurred on 02/14/24 at 05:14. Patient's care was discussed, and care was transferred from Quintin Bahena DO to Tobias Dixon DO. Coding Level of Care Code ED Check Processing Clerk for Chg Fwd Documented by User: Tobias Dixon DO 02/14/24 06:54 HPI - Psych General: Chief Complaint: Psychiatric Symptoms Stated Complaint: MHE Time Seen by Provider: 02/14/24 03:36 Related Data Previous Rx's Medication Instructions Recorded clindamycin phosphate 1 % topical 1 applic topical BID #60 mL 01/06/23 solution pantoprazole 40 mg tablet,delayed 40 mg PO BID 60 days #120 tabs 01/18/23 release (Protonix) ASO #1 ea 06/13/23 spironolactone 50 mg tablet 50 mg PO DAILY #90 tabs 09/01/23 ubrogepant 50 mg tablet (Ubrelvy) 50 mg PO ONCE PRN migraine 10/02/23 headache #20 tabs levothyroxine 125 mcg tablet 125 mcg PO DAILY #60 tabs 11/02/23 aripiprazole 400 mg intramuscular 400 mg IM Q28D #1 ea 01/24/24 suspension,extended release (Abilify Maintena) benztropine 1 mg tablet 1 mg PO BID #60 tabs 01/24/24 doxepin 50 mg capsule 50 mg PO .HS #30 caps 01/24/24 hydroxyzine pamoate 50 mg capsule 50 mg PO QID PRN anxiety #120 caps 01/24/24 Symbicort 160 mcg-4.5 See Rx Instructions .Route 01/31/24 mcg/actuation HFA aerosol inhaler .COMPLEX #11 grams (budesonide-formoterol) albuterol sulfate 90 mcg/actuation See Rx Instructions .Route 01/31/24 aerosol inhaler .COMPLEX #8.5 grams venlafaxine 150 mg 300 mg (2 x 150 mg) PO DAILY #30 01/31/24 capsule,extended release 24 hr caps (Effexor XR) Allergies Allergy/AdvReac Type Severity Reaction Status Date / Time acetaminophen [From Tylenol] Allergy Severe facial Verified 01/31/24 11:32 swelling lisinopril Allergy Severe facial Verified 01/31/24 11:32 swelling meperidine [From Demerol] Allergy Unknown Unknown Verified 01/31/24 11:32 NSAIDS (Non-Steroidal Allergy Unknown Verified 01/31/24 11:32 Anti-Inflamma PFSH ED PFSH: Medical History Borderline personality disorder Psychiatric care PTSD (post-traumatic stress disorder) Bipolar 1 disorder History of gallbladder disease Abdominal pain Type 2 diabetes mellitus Depression Anxiety Hypertension Hypercholesteremia Hidradenitis suppurativa Neuropathy Asthma Surgical History History of tonsillectomy History of surgery on lower extremity Family History Grandmother No problems noted. Grandfather Cancer Maternal-colon Father Cancer, Onset Age: 49 pancreatic Family/Other Cancer Maternal aunt-breast and bone Other Bleeding disorder Dementia Diabetes Hyperlipidemia Hypertension Lung disease Stroke Denies family history of CAD (coronary artery disease) Clotting disorder Psychiatric illness Chronic kidney disease (CKD) Anesthesia complication Social History Smoking and tobacco/nicotine status: current every day tobacco/nicotine user cigarettes Packs smoked per day: 0.5 Alcohol intake: never Substance/Drug Use: current Substance/Drug use frequency: daily Lives independently: Yes Marital status: Number of children: 2 Current occupational status: employed and disabled Current occupation: [employer] Special izaiah needs: No Agree to transfusion: Yes Course Vital Signs: Vital signs: Vital Signs Temperature 97.8 F 02/14/24 06:46 Pulse Rate 91 02/14/24 06:46 Respiratory Rate 18 02/14/24 06:46 Blood Pressure 136/89 02/14/24 06:46 Pulse Oximetry 97 02/14/24 06:46 Oxygen Delivery Me thod Room Air 02/14/24 06:46 MDM - Psych Medical Decision Making Care assumed at change of shift. Affidavit has been signed 96-hour hold completed. Will admit patient to [facility] for acute suicidal ideation Lab Data 02/14/24 04:29 02/14/24 04:29 Laboratory Results WBC 11.16 10^3/uL (3.29-11.43) 02/14/24 04:29 RBC 4.83 10^6/uL (3.85-5.65) 02/14/24 04:29 Hgb 11.80 g/dL (11.27-16.99) 02/14/24 04:29 Hct 37.5 % (36-47) 02/14/24 04:29 MCV 77.6 fl (85-98) L 02/14/24 04:29 MCH 24.4 pg (27-33) L 02/14/24 04:29 MCHC 31.5 g/dL (30-55) 02/14/24 04:29 RDW 16.9 % (12.1-15.1) H 02/14/24 04:29 Plt Count 387 10^3/cmm (157-399) 02/14/24 04:29 MPV 9.5 fL (7.4-10.4) 02/14/24 04:29 Neut % (Auto) 68.6 % 02/14/24 04:29 Lymph % (Auto) 25.4 % 02/14/24 04:29 [place] % (Auto) 3.9 % 02/14/24 04:29 Eos % (Auto) 1.3 % 02/14/24 04:29 Baso % (Auto) 0.4 % 02/14/24 04:29 Neut # (Auto) 7.64 10^3/uL (1.8-7.7) 02/14/24 04:29 Lymph # (Auto) 2.8 10^3/uL (0.8-4.8) 02/14/24 04:29 [place] # (Auto) 0.4 10^3/uL (0.2-0.9) 02/14/24 04:29 Eos # (Auto) 0.2 10^3/uL (0.0-0.8) 02/14/24 04:29 Baso # (Auto) 0.1 10^3/uL (0.0-0.1) 02/14/24 04:29 Nucleated RBC % (auto) 0 % 02/14/24 04:29 Nucleated RBCs # 0.0 /100WBC 02/14/24 04:29 Sodium 139 mmol/L (136-145) 02/14/24 04:29 Potassium 3.8 mmol/L (3.5-5.1) 02/14/24 04:29 Chloride 101 mmol/L (98-107) 02/14/24 04:29 Carbon Dioxide 28 mmol/L (22-29) 02/14/24 04:29 Anion Gap 13.8 (5-19) 02/14/24 04:29 BUN 8 mg/dL (6-20) 02/14/24 04:29 Creatinine 0.8 mg/dL (0.5-0.9) 02/14/24 04:29 GFR Calculation 79.0 mL/min (90-130) L 02/14/24 04:29 Glucose 136 mg/dL (65-115) H 02/14/24 04:29 Calculated Osmolality 288 mOsm/kg (285-295) 02/14/24 04:29 Calcium 8.6 mg/dL (8.5-10.5) 02/14/24 04:29 Total Bilirubin 0.2 mg/dL (0.15-1.2) 02/14/24 04:29 AST 10 U/L (0-32) 02/14/24 04:29 ALT 9 U/L (0-33) 02/14/24 04:29 Alkaline Phosphatase 69 U/L (35-105) 02/14/24 04:29 Total Protein 7.2 g/dL (6.6-8.7) 02/14/24 04:29 Albumin 4.2 g/dL (3.5-5.2) 02/14/24 04:29 Globulin 3.0 g/dL (1.3-4.6) 02/14/24 04:29 HCG, Qual Negative (Negative) 02/14/24 03:45 Urine Color Yellow (Yellow) 02/14/24 03:45 Urine Appearance Clear (CLEAR) 02/14/24 03:45 Urine pH 5.5 (5-7) 02/14/24 03:45 Ur Specific [place] 1.009 (1.005-1.030) 02/14/24 03:45 Urine Protein Negative (Negative) 02/14/24 03:45 Urine Glucose (UA) Negative (Normal) 02/14/24 03:45 Urine Ketones Negative (Negative) 02/14/24 03:45 Urine Blood Negative (Negative) 02/14/24 03:45 Urine Nitrate Negative (Negative) 02/14/24 03:45 Urine Bilirubin Negative (Negative) 02/14/24 03:45 Urine Urobilinogen 0.2 mg/dL (Negative) 02/14/24 03:45 Ur Leukocyte Esterase Negative (Negative) 02/14/24 03:45 Urine RBC 0-2 /hpf (0-2) 02/14/24 03:45 Urine WBC 0-5 /hpf (0-5) 02/14/24 03:45 Ur Squamous Epith Cells 0-5 /hpf (0-5) 02/14/24 03:45 Amorphous Sediment Not Reportable 02/14/24 03:45 Urine Bacteria None seen /hpf (NONE) 02/14/24 03:45 Hyaline Casts 0-4 /lpf H 02/14/24 03:45 Salicylates < 0.3 mg/dL (3-10) L 02/14/24 04:29 Urine Opiates Screen Negative ng/mL (Negative) 02/14/24 03:45 Acetaminophen < 5.0 ug/mL (10-30) L 02/14/24 04:29 Ur Barbiturates Screen Negative ng/mL (Negative) 02/14/24 03:45 Ur Phencyclidine Scrn Negative ng/mL (Negative) 02/14/24 03:45 Ur Amphetamines Screen Positive ng/mL (Negative) H 02/14/24 03:45 U Benzodiazepines Scrn Negative ng/mL (Negative) 02/14/24 03:45 Urine Cocaine Screen Negative ng/mL (Negative) 02/14/24 03:45 U Marijuana (THC) Screen Positive ng/mL (Negative) H 02/14/24 03:45 Ethyl Alcohol < 10 mg/dL (0-10) 02/14/24 04:29 Discharge Plan Discharge Admit Provider: Jamey Mcdonald Clinical Impression: Suicidal ideation Condition: Stable Sign Out Sign Out Data: Patient Sign Out occurred on 02/14/24 at 05:14. Patient's care was discussed, and care was transferred from Quintin Bahena DO to Tobias Dixon DO. Coding Level of Care Code ED Check Processing Clerk for Marimar Nicholas
[2024-02-14 03:55] LABS: HCG Qualitative Urine. Negative (Negative)
[2024-02-14 03:57] LABS: Bilirubin Urine Negative (Negative); Blood Urine Negative (Negative); Glucose Urine UA Negative (Normal); Ketones Urine Negative (Negative); Leukocyte Esterase Urine Negative (Negative); Nitrate Urine Negative (Negative); Protein Urine Negative (Negative); Specific Gravity, Urine 1.009 (1.005-1.030); Urine Appearance Clear (CLEAR); Urine Color Yellow (Yellow); Urobilinogen Urine 0.2 mg/dL (Negative); pH Urine 5.5 (5-7)
[2024-02-14 03:59] LABS: Add Urine Microscopic? YES; Bacteria Urine None Seen /hpf; Hyaline Casts Urine 0-4 /lpf; RBC Urine 0-2 /hpf (0-2); Squamous Epithelial Cell Urine 0-5 /hpf (0-5); WBC Urine 0-5 /hpf (0-5)
[2024-02-14 04:10] LABS: Amphetamines Screen Urine Positive (Negative); Barbiturates Screen Urine Negative (Negative); Benzodiazepines Screen Urine Negative (Negative); Cocaine Screen Urine Negative (Negative); Opiate Screen Urine Negative (Negative); PCP Screen Urine Negative (Negative); THC Screen Urine Positive (Negative)
[2024-02-14 04:34] LABS: Basophils # 0.1 10^3/uL (0.0-0.1); Basophils % 0.4 %; Eosinophils # 0.2 10^3/uL (0.0-0.8); Eosinophils % 1.3 %; Hematocrit 37.5 % (36-47); Lymphocytes # 2.8 10^3/uL (0.8-4.8); Lymphocytes % 25.4 %; Mean Corpuscular HGB Conc 31.5 g/dL (30-55); Mean Corpuscular Hemoglobin 24.4 pg (27-33); Mean Corpuscular Volume 77.6 fl (85-98); Mean Platelet Volume 9.5 fL (7.4-10.4); Monocytes # 0.4 10^3/uL (0.2-0.9); Monocytes % 3.9 %; Neutrophils # 7.64 10^3/uL (1.8-7.7); Neutrophils % 68.6 %; Nucleated Red Blood Cells % 0 %; Platelet Count 387 10^3/cmm (157-399); Red Blood Count 4.83 10^6/uL (3.85-5.65); Red Cell Distribution Width 16.9 % (12.1-15.1); White Blood Count 11.16 10^3/uL (3.29-11.43)
[2024-02-14 04:59] LABS: Alanine Aminotransferase 9 U/L (0-33); Albumin Level 4.2 g/dL (3.5-5.2); Alkaline Phosphatase 69 U/L (35-105); Anion Gap 13.8 (5-19); Aspartate Amino Transferase 10 U/L (0-32); Blood Urea Nitrogen 8 mg/dL (6-20); Calcium 8.6 mg/dL (8.5-10.5); Carbon Dioxide 28 mmol/L (22-29); Chloride 101 mmol/L (98-107); Creatinine Clr Calc Pharmacy 126.0947; Glucose 136 mg/dL (65-115); Osmolality Calculated 288 mOsm/kg (285-295); Potassium 3.8 mmol/L (3.5-5.1); Sodium 139 mmol/L (136-145); Total Bilirubin 0.2 mg/dL (0.15-1.2); Total Protein 7.2 g/dL (6.6-8.7)
[2024-02-14 05:02] LABS: Acetaminophen < 5.0 ug/mL (10-30); Alcohol Level < 10 mg/dL (0-10); Salicylate < 0.3 mg/dL (3-10)
--- NOTE | 2024-02-14 05:13 | PC.NURSE ---
96 HH Pt served with copy of 96 HH by this RN and security. Pt A&Ox3. All questions answered. Pt calm and cooperative.
[2024-02-14 06:46] VITALS: BP 136/89; PULSE 91; RESP 18; TEMP 36.6; O2SAT 97
[2024-02-14] MEDS: venlafaxine ER (24HR) 150 mg Capsule PO (10:43)
[2024-02-14] MEDS: ARIPiprazole 10 mg Tablet PO (10:43)
[2024-02-14 14:00] VITALS: BP 143/77; PULSE 106; RESP 14; TEMP 36.8; O2SAT 98
[2024-02-14] MEDS: OLANZapine 5 mg ODT PO (17:52)
[2024-02-14] MEDS: nicotine 2 mg Gum BUCCAL (17:52)
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
[2024-02-14 19:58] VITALS: BP 121/70; PULSE 101; RESP 16; TEMP 37.1; O2SAT 94
[2024-02-14 22:07] VITALS: PULSE 73; O2SAT 96
[2024-02-15 06:00] VITALS: BP 132/69; PULSE 92; RESP 18; TEMP 36.6; O2SAT 94
--- NOTE | 2024-02-15 09:26 | PC.NURSE ---
IN BED RESTING, EVASIVE WITH ASSESSMENT. FLAT AFFECT, MAKES NO EYE CONTACT. DENIES SI/HI AND AVH AT THIS TIME. RATES ALL OVER PAIN 8/10. REFUSES TO TAKE ANYTHING FOR THE PAIN BUT PAIN PILLS. RATES ANXIETY AND DEPRESSION 8/10. MED NURSE TO GIVE PRN ANTI-ANXIETY MEDICATION. PT ISOLATING AND WITHDRAWN TO ROOM. GUARDED WITH STAFF. ALL QUESTIONS ANSWERED AND SUPPORT VOICED.
[2024-02-15] MEDS: nicotine 4 mg lozenge MUCOUS MEM ×4 (10:00→17:57)
[2024-02-15] MEDS: hyDROXYzine 25 mg Capsule 50 MG PO (10:00)
[2024-02-15] MEDS: venlafaxine ER (24HR) 150 mg Capsule PO (10:00)
[2024-02-15] MEDS: ARIPiprazole 10 mg Tablet PO (10:00)
[2024-02-15] MEDS: OLANZapine 5 mg ODT PO ×2 (12:33→17:57)
[2024-02-15] MEDS: haloperidol 5 mg Tablet PO ×2 (13:43→20:35)
[2024-02-15 14:00] VITALS: BP 123/84; PULSE 99; RESP 17; O2SAT 98
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
[2024-02-15 19:29] VITALS: BP 119/73; PULSE 92; RESP 18; TEMP 36.6; O2SAT 97
[2024-02-16 06:00] VITALS: BP 109/73; PULSE 84; RESP 16; TEMP 36.9; O2SAT 97
[2024-02-16] MEDS: haloperidol 5 mg Tablet PO ×2 (08:38→20:24)
[2024-02-16] MEDS: venlafaxine ER (24HR) 150 mg Capsule PO (08:38)
[2024-02-16] MEDS: ARIPiprazole 10 mg Tablet PO (08:38)
[2024-02-16] MEDS: nicotine 4 mg lozenge MUCOUS MEM ×2 (08:38→13:01)
--- NOTE | 2024-02-16 10:08 | PC.NURSE ---
Morning Assessment Patient reports anxiety during morning assessment. Patient rates anxiety at a constatn 12/01. Patient said that vistaril, zyprexa, and haldol do not help alleviate her anxiety. Patient rates depression 10/31. Patient denies SI, stating not today. Patient was agreeable to notify this nurse if she started having suicidal thoughts.
[2024-02-16 14:00] VITALS: BP 102/64; PULSE 92; RESP 18; TEMP 37; O2SAT 95
--- NOTE | 2024-02-16 16:51 | P.NPUPN_ITS ---
Subjective NPU 2 Subjective: 43-year-old female with a history of pavel ysubstance dependence, borderline personality disorder, and bipolar disorder admitted with increased suicidality with continued use of methamphetamine. The patient had reported that she continued to have problems with anxiety. She had also reported an extended history of opiate abuse stating that she had used fentanyl with her methamphetamine. She had reported continued depressed mood. She had reported continued anxiety requesting benzodiazepines to help her manage her anxiety. She had expressed interest in considering inpatient substance abuse treatment. Despite this, the patient had appeared somewhat lethargic and unmotivated here on the unit. She had required some redirection to complete activities of daily living. Mental Status Exam 2 MSE Comments: Patient is alert and oriented person place and time. Her hygiene was poor. She had intermittent eye contact. Her gait appeared within normal limits. There was no evidence of any abnormal involuntary motor movements tics or tremors appreciated. Her speech was regular in rate rhythm volume tone and prosody. Her mood was described as depressed. Her affect was restricted. Her thought process was linear, logical and goal-directed. She endorsed suicidal ideation without a plan today. She denied any homicidal ideation. She did not appear to be responding to internal stimuli and denied any auditory visual hallucinations at this time. There is no clear evidence of delusional thinking. Her attention span appeared fair. Her insight is impaired. Her judgment is poor. Her impulse control appeared limited. Her recent and remote memory appeared grossly intact. Vitals/I&O/Wt Last Vital Signs Temp 98.4 F 02/16/24 06:00 Pulse 84 02/16/24 06:00 Resp 16 02/16/24 06:00 BP 109/73 02/16/24 06:00 Pulse Ox 97 02/16/24 06:00 O2 Del Method Room Air 02/15/24 19:29 O2 Flow Rate 94 02/14/24 19:58 FiO2 21 02/14/24 22:07 Data NPU 02/14/24 04:29 02/14/24 04:29 A&P Assessment and plan (1) Bipolar affective, depress, unspec: (2) Borderline personality disorder: (3) Opioid dependence: (4) Cannabis dependence: (5) Suicidal ideation: (6) Generalized anxiety disorder: Plan 43-year-old female admitted with suicidal ideation with a history of frequent mood fluctuations, mood instability and polysubstance abuse. She would likely benefit from an adjustment in her medications for a brief hospital stay as well. #1.? Engage patient in individual milieu and group therapy. #2?? Recommend sober living treatment at the highest level of care to which the patient is willing to commit #3??? Restart outpatient medications, Continue oral abilify 10mg daily and effexor xr to 150mg in am. Continue wellbutrin xl 150mg in am to target depression. Consider inpatient substance abuse treatment. Add Suboxone 4mg/1mg daily to target opioid dependence. #4?? TO-15 minute checks? #5?? Will attempt to gather collateral information Involuntary Hold Information 2 96 Hour Hold: 96 Hour Involuntary Admission: Yes 96 Hour Hold Ending Date: 02/20/24 96 Hour Hold Ending Time: 04:06 Other Hold: Hold End Date: 02/20/24 Attestations NPU 2 Medical Necessity Statement*: Inpatient hospitalization is medically necessary and deemed to ?be ?the clinically appropriate intervention ?at this time.? We will monitor/initiate medications and make changes as indicated.? The patient?s likely length of stay 4-7 days. Coding Level of Care Code Acute Code for g Fwd Diagnoses Bipolar affective, depress, unspec F31.30 Borderline personality disorder F60.3 Opioid dependence F11.20 Cannabis dependence F12.20 Suicidal ideation R45.851 Generalized anxiety disorder F41.1
[2024-02-16] MEDS: buprenorphine-naloxone 4-1 mg Film 1 EACH SUBLINGUAL (17:43)
[2024-02-16 20:05] VITALS: BP 101/63; PULSE 72; RESP 16; TEMP 36.9; O2SAT 94
[2024-02-16 20:30] LABS: Glucose Point of Care 130 mg/dL (70-110)
--- NOTE | 2024-02-16 21:20 | PC.NURSE ---
Patient Note Patient refusing CPAP this evening. This reported voiced concerns and patient stated she has been homeless for the last 3 weeks and has slept fine without it for 3 weeks. CPAP not placed on patient.
[2024-02-17 06:00] VITALS: BP 104/72; PULSE 78; RESP 16; TEMP 36.7; O2SAT 94
[2024-02-17] MEDS: buPROPion XL (24 HR) 150 mg Tablet PO (08:09)
[2024-02-17] MEDS: ARIPiprazole 10 mg Tablet PO (08:09)
[2024-02-17] MEDS: venlafaxine ER (24HR) 150 mg Capsule PO (08:09)
[2024-02-17] MEDS: nicotine 4 mg lozenge MUCOUS MEM ×6 (08:11→20:52)
[2024-02-17] MEDS: hyDROXYzine 25 mg Capsule 50 MG PO (11:06)
[2024-02-17] MEDS: OLANZapine 5 mg ODT PO ×2 (12:10→18:01)
[2024-02-17] MEDS: haloperidol 5 mg Tablet PO ×2 (13:28→19:33)
[2024-02-17 14:00] VITALS: BP 126/82; PULSE 91; RESP 17; TEMP 36.6; O2SAT 99
--- NOTE | 2024-02-17 16:40 | P.NPUPN_ITS ---
Subjective NPU 2 Subjective: 43-year-old female with a history of pavel ysubstance dependence, borderline personality disorder, and bipolar disorder admitted with increased suicidality with continued use of methamphetamine. Patient continued to endorse anxiety. She had reported that she had felt better with initiation of Suboxone with no side effects reported. The patient reported low energy and low motivation. She had stated that she had talked to someone and was considering attending [facility] inpatient substance abuse rehabilitation program. She had reported an extended history of opiate use and methamphetamine use. She had continued to request benzodiazepines to talk to target anxiety. She had shown evidence of improved energy and improvement in completion of activities of daily living. She had reported chronic problems with feeling tired. Mental Status Exam 2 MSE Comments: Patient is alert and oriented person place and time. Her hygiene was poor. She had intermittent eye contact. Her gait appeared within normal limits. There was no evidence of any abnormal involuntary motor movements tics or tremors appreciated. Her speech was regular in rate rhythm volume tone and prosody. Her mood was described as depressed. Her affect was less restricted. Her thought process was linear, logical and goal-directed. She endorsed no suicidal ideation without a plan today. She denied any homicidal ideation. She did not appear to be responding to internal stimuli and denied any auditory visual hallucinations at this time. There is no clear evidence of delusional thinking. Her attention span appeared fair. Her insight is impaired. Her judgment is poor. Her impulse control appeared limited. Her recent and remote memory appeared grossly intact. Vitals/I&O/Wt Last Vital Signs Temp 97.9 F 02/17/24 14:00 Pulse 91 02/17/24 14:00 Resp 17 02/17/24 14:00 BP 126/82 02/17/24 14:00 Pulse Ox 99 02/17/24 14:00 O2 Del Method Room Air 02/15/24 19:29 O2 Flow Rate 94 02/14/24 19:58 FiO2 21 02/14/24 22:07 Data NPU 02/14/24 04:29 02/14/24 04:29 A&P Assessment and plan (1) Bipolar affective, depress, unspec: (2) Borderline personality disorder: (3) Opioid dependence: (4) Cannabis dependence: (5) Suicidal ideation: (6) Generalized anxiety disorder: Plan 43-year-old female admitted with suicidal ideation with a history of frequent mood fluctuations, mood instability and polysubstance abuse. She would likely benefit from an adjustment in her medications for a brief hospital stay as well. #1.? Engage patient in individual milieu and group therapy. #2?? Recommend sober living treatment at the highest level of care to which the patient is willing to commit #3??? Restart outpatient medications, Increase abilify 15mg daily and continue effexor xr to 150mg in am. Continue wellbutrin xl 150mg in am to target depression. Consider inpatient substance abuse treatment. Increase Suboxone 4mg/1mg bid to target opioid dependence. #4?? TO-15 minute checks? #5?? Will attempt to gather collateral information-consider inpatient substance abuse treatment. Involuntary Hold Information 2 96 Hour Hold: 96 Hour Involuntary Admission: Yes 96 Hour Hold Ending Date: 02/20/24 96 Hour Hold Ending Time: 04:06 Other Hold: Hold End Date: 02/20/24 Attestations NPU 2 Medical Necessity Statement*: Inpatient hospitalization is medically necessary and deemed to ?be ?the clinically appropriate intervention ?at this time.? We will monitor/initiate medications and make changes as indicated.? The patient?s likely length of stay 4-7 days. Coding Level of Care Code Acute Code for [facility] Fwd Diagnoses Bipolar affective, depress, unspec F31.30 Borderline personality disorder F60.3 Opioid dependence F11.20 Cannabis dependence F12.20 Suicidal ideation R45.851 Generalized anxiety disorder F41.1
[2024-02-17] MEDS: buprenorphine-naloxone 4-1 mg Film 1 EACH SUBLINGUAL (17:58)
[2024-02-17 19:54] LABS: Free T4 Free Thyroxine 0.36 ng/dL (0.82-1.77); T3 Free 1.8 PG/ML (2.0-4.4)
[2024-02-17] MEDS: trazodone 50 mg Tablet PO ×2 (20:06→21:41)
[2024-02-17 20:23] LABS: Glucose Point of Care 139 mg/dL (70-110)
[2024-02-17 20:34] VITALS: BP 112/67; PULSE 100; RESP 18; TEMP 36.6; O2SAT 98
[2024-02-18 06:00] VITALS: BP 99/59; PULSE 90; RESP 17; TEMP 36.7; O2SAT 94
[2024-02-18] MEDS: nicotine 4 mg lozenge MUCOUS MEM ×7 (06:30→18:37)
[2024-02-18] MEDS: ARIPiprazole 10 mg Tablet 15 MG PO (08:55)
[2024-02-18] MEDS: buPROPion XL (24 HR) 150 mg Tablet PO (08:55)
[2024-02-18] MEDS: venlafaxine ER (24HR) 150 mg Capsule PO (08:55)
[2024-02-18] MEDS: buprenorphine-naloxone 4-1 mg Film 1 EACH SUBLINGUAL ×2 (08:56→18:02)
[2024-02-18] MEDS: hyDROXYzine 25 mg Capsule 50 MG PO ×2 (08:56→16:21)
[2024-02-18] MEDS: OLANZapine 5 mg ODT PO (12:11)
[2024-02-18 14:00] VITALS: BP 103/63; PULSE 104; RESP 17; TEMP 36.7; O2SAT 97
[2024-02-18] MEDS: haloperidol 5 mg Tablet PO (14:14)
--- NOTE | 2024-02-18 14:41 | W.PM.NPUPNS ---
Subjective NPU Subjective: 43-year-old female with a history of polysubstance dependence, borderline personality disorder, and bipolar disorder admitted with increased suicidality with continued use of methamphetamine. The patient had reported being sensitive to loud noises and stated that he was increasingly agitated. The patient had stated that she was feeling better in regards to her mood with the increase in Abilify and the increase in Suboxone. She had reported no cravings for opiates at this time. She had expressed interest in considering an inpatient substance abuse treatment program. She had requested the use of Zyprexa to help with anxiety. She had been more compliant and redirectable on the milieu. Mental Status Exam MSE Comments: Patient is alert and oriented person place and time. Her hygiene was poor. She had improving eye contact. Her gait appeared within normal limits. There was no evidence of any abnormal involuntary motor movements tics or tremors appreciated. Her speech was regular in rate, rhythm, volume tone and prosody. Her mood was described as okay. Her affect was less restricted. Her thought process was linear, logical and goal-directed. She endorsed no suicidal ideation without a plan today. She denied any homicidal ideation. She did not appear to be responding to internal stimuli and denied any auditory visual hallucinations at this time. There is no clear evidence of delusional thinking. Her attention span appeared fair. Her insight is impaired. Her judgment is poor. Her impulse control appeared limited. Her recent and remote memory appeared grossly intact. Vitals/I&O/Wt Last Vital Signs Temp 98.1 F 02/18/24 06:00 Pulse 90 02/18/24 06:00 Resp 17 02/18/24 06:00 BP 99/59 02/18/24 06:00 Pulse Ox 94 02/18/24 06:00 O2 Del Method Room Air 02/15/24 19:29 O2 Flow Rate 94 02/14/24 19:58 FiO2 21 02/14/24 22:07 02/17/24 02/18/24 02/18/24 22:59 06:59 14:59 Intake Total 980 / 980 Balance 980 / 980 Weight last 48 hrs Weight 123.377 kg Data NPU 02/14/24 04:29 02/14/24 04:29 A&P Assessment and plan (1) Bipolar affective, depress, unspec: (2) Borderline personality disorder: (3) Opioid dependence: (4) Cannabis dependence: (5) Suicidal ideation: (6) Generalized anxiety disorder: Plan 43-year-old female admitted with suicidal ideation with a history of frequent mood fluctuations, mood instability and polysubstance abuse. She would likely benefit from an adjustment in her medications for a brief hospital stay as well. #1.? Engage patient in individual milieu and group therapy. #2?? Recommend sober living treatment at the highest level of care to which the patient is willing to commit #3??? Continue abilify 15mg daily and continue effexor xr to 150mg in am. Continue wellbutrin xl 150mg in am to target depression. Consider inpatient substance abuse treatment. Continue Suboxone 4mg/1mg bid to target opioid dependence. #4?? TO-15 minute checks? #5?? Will attempt to gather collateral information-consider inpatient substance abuse treatment. Involuntary Hold Information 96 Hour Hold: 96 Hour Involuntary Admission: Yes 96 Hour Hold Ending Date: 02/20/24 96 Hour Hold Ending Time: 04:06 Other Hold: Hold End Date: 02/20/24 Attestations NPU Medical Necessity Statement*: Inpatient hospitalization is medically necessary and deemed to ?be ?the clinically appropriate intervention ?at this time.? We will monitor/initiate medications and make changes as indicated.? The patient?s likely length of stay 4-7 days. Coding Level of Care Code Acute Code for [facility] Fwd Diagnoses Bipolar affective, depress, unspec F31.30 Borderline personality disorder F60.3 Opioid dependence F11.20 Cannabis dependence F12.20 Suicidal ideation R45.851 Generalized anxiety disorder F41.1
[2024-02-18 20:43] VITALS: BP 104/65; PULSE 85; RESP 17; TEMP 36.9; O2SAT 98
[2024-02-18 21:26] LABS: Glucose Point of Care 128 mg/dL (70-110)
[2024-02-19 06:00] VITALS: BP 113/84; PULSE 84; RESP 18; TEMP 36.7; O2SAT 97
[2024-02-19] MEDS: buprenorphine-naloxone 4-1 mg Film 1 EACH SUBLINGUAL (08:13)
[2024-02-19] MEDS: ARIPiprazole 10 mg Tablet 15 MG PO (08:13)
[2024-02-19] MEDS: buPROPion XL (24 HR) 150 mg Tablet PO (08:13)
[2024-02-19] MEDS: venlafaxine ER (24HR) 150 mg Capsule PO (08:13)
[2024-02-19] MEDS: nicotine 4 mg lozenge MUCOUS MEM ×4 (08:16→14:11)
[2024-02-19] MEDS: hyDROXYzine 25 mg Capsule 50 MG PO (08:16)
--- NOTE | 2024-02-19 08:20 | PC.NURSE ---
Anxiety, rates it 10/31. Administered vistaril 50mg PO to patient. Patient unable to determine cause or something to alleviate this.
[2024-02-19] MEDS: OLANZapine 5 mg ODT PO ×2 (09:39→14:11)
[2024-02-19] MEDS: haloperidol 5 mg Tablet PO (11:43)
--- NOTE | 2024-02-19 14:28 | P.NPUDS_ITS ---
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 Positive ng/mL (N egative) H 02/14/24 03:45 U Benzodiazepines Scrn Negative ng/mL (N egative) 02/14/24 03:45 Urine Cocaine Scre en Negative ng/mL (N egative) 02/14/24 03:45 U Marijuana (THC) Screen Positive ng/mL (N egative) H 02/14/24 03:45 Ethyl Alcohol < 10 mg/dL (0-10) 02/14/24 04:29 Vitals: Last Vital Signs Temp 98.1 F 02/19/24 06:00 Pulse 84 02/19/24 06:00 Resp 18 02/19/24 06:00 BP 113/84 02/19/24 06:00 Pulse Ox 97 02/19/24 06:00 O2 Del Method Room Air 02/15/24 19:29 O2 Flow Rate 94 02/14/24 19:58 FiO2 21 02/14/24 22:07 Discharge Plan Discharge Patient Disposition: Home Condition: Stable Prescriptions: New aripiprazole 10 mg Tablet 15 mg PO DAILY 30 Days Qty: 45 1RF bupropion HCl 150 mg Tablet Extended Release 24 Hr 150 mg PO DAILY 30 Days Qty: 30 1RF haloperidol 1 mg Tablet 1 mg PO Q8H PRN (Reason: Agitation) 30 Days Qty: 30 1RF venlafaxine 150 mg Capsule,Extended Release 24hr 150 mg PO DAILY 30 Days Qty: 30 1RF buprenorphine-naloxone [Suboxone] 8-2 mg film 1 film sublingual DAILY Qty: 12 0RF Continued levothyroxine 125 mcg tablet 125 mcg PO DAILY Qty: 60 1RF Abilify Maintena 400 mg suspension,extended rel recon 400 mg IM Q28D Qty: 1 2RF hydroxyzine pamoate 50 mg capsule 50 mg PO QID PRN (Reason: anxiety) Qty: 120 2RF Discontinued venlafaxine [Effexor XR] 150 mg capsule,extended release 24hr 300 mg PO DAILY Qty: 30 2RF Discharge Orders: Discharge Order (Routine); Ordered 02/19/24 Ordered By: Thai Hardwick Referrals: [facility] [Other] [facility] [Other] - 02/20/24 1:00 pm (Bed date) Dheeraj Sol MD [Primary Care Provider] - Discharge Diet: Usual diet Discharge Activity: Resume usual activity Patient Instructions: Aripiprazole (By mouth) (Tamanna Nolenmelsusannah), Bipolar Disorder (DC), Help Prevent Suicide (DC), Opioid Safety Discharge Attestations NPU Time Spent in Discharge Care*: less than 30 min Specific Discharge Activities: Specific discharge activities: educating patikathy t and documenting/other paperwork Coding Level of Care Code Acute Code for g Fwd Diagnoses Bipolar affective, depress, unspec F31.30 Borderline personality disorder F60.3 Opioid dependence F11.20 Cannabis dependence F12.20 Suicidal ideation R45.851 Generalized anxiety disorder F41.1
[2024-02-19 14:31] VITALS: BP 113/84; PULSE 84; RESP 18; TEMP 36.7; O2SAT 97
--- NOTE | 2024-02-19 16:07 | DCPLANNER ---
IMM was printed and rights explained to pt and copy placed in file.
== END 2024-02-19 16:13 | disposition home or self-care (01) | DRG 885 ==
LOC: ER 05:20 → NP 06:54
PROVIDERS: Emergency Medicine; Admitting Provider Psychiatry & Neurology Psychiatry; Emergency Provider Family Medicine; PCP Family Medicine; Visit Provider Psychiatry & Neurology Psychiatry
DX: F31.89 Other bipolar disorder (principal); R45.851 Suicidal ideations; Z59.00 Homelessness unspecified; F60.3 Borderline personality disorder; F12.20 Cannabis dependence, uncomplicated; F41.1 Generalized anxiety disorder; F17.210 Nicotine dependence, cigarettes, uncomplicated; E11.9 Type 2 diabetes mellitus without complications; Z62.810 Personal history of physical and sexual abuse in childhood; Z81.8 Family history of other mental and behavioral disorders
CPT/HCPCS: 36415; 36416; 80053; 80306; 80307; 81001; 81025; 82962; 84439; 84443; 84481; 85025; 94660; 97150; 97165; 99285; J0573

== ENCOUNTER → 2024-05-13 15:41 | Outpatient (BNVA) | payer MEDICARE, OTHER, SELFPAY | PROVIDERS: PCP Family Medicine; Visit Provider Psychiatry & Neurology Psychiatry | DX: Z79.899 Other long term (current) drug therapy (principal) | CPT/HCPCS: 80061; 83036 ==

== ENCOUNTER → 2024-05-24 13:50 | Outpatient (BNVA) | payer MEDICARE, SELFPAY ==
[2024-05-15 11:47] VITALS: BP 140/78; BMI 42.9
== END ==
PROVIDERS: PCP Family Medicine; Visit Provider Psychiatry & Neurology Psychiatry
DX: F11.20 Opioid dependence, uncomplicated (principal); Z79.899 Other long term (current) drug therapy
CPT/HCPCS: 80307

== ENCOUNTER → 2024-06-18 11:09 | Outpatient (BNVA) | payer MEDICARE, SELFPAY ==
[2024-05-15 11:47] VITALS: BP 140/78; BMI 42.9
== END ==
PROVIDERS: PCP Family Medicine; Visit Provider Nurse Practitioner Women's Health
DX: Z12.4 Encounter for screening for malignant neoplasm of cervix (principal)
CPT/HCPCS: 87624

== ENCOUNTER → 2024-06-21 13:20 | Outpatient (BNVA) | payer MEDICARE, OTHER, SELFPAY ==
[2024-05-15 11:47] VITALS: BP 140/78; BMI 42.9
== END ==
PROVIDERS: PCP Family Medicine; Visit Provider Psychiatry & Neurology Psychiatry
DX: F11.20 Opioid dependence, uncomplicated (principal); F43.10 Post-traumatic stress disorder, unspecified; F41.1 Generalized anxiety disorder; F33.2 Major depressive disorder, recurrent severe without psychotic features; F60.3 Borderline personality disorder; Z79.899 Other long term (current) drug therapy; F12.20 Cannabis dependence, uncomplicated
CPT/HCPCS: 80307

== ENCOUNTER 2024-06-28 08:49 | Outpatient (CLI) | payer MEDICARE, SELFPAY ==
[2024-05-15 11:47] VITALS: BP 140/78; BMI 42.9
--- NOTE | 2024-06-28 09:40 | MM_ITS ---
WS: [id number] BILATERAL SCREENING DIGITAL TOMOSYNTHESIS MAMMOGRAM WITH CAD HISTORY: Z12.4 - Encounter for screening for malignant neoplasm of... COMPARISON: None. Bilateral CC and MLO views with tomosynthesis and synthetic mammography submitted. Computer aided detection analyzed. Breast composition: The breasts are almost entirely fatty. No suspicious masses, microcalcifications or architectural distortion. Peripherally calcified masses scattered throughout the RIGHT breast consistent with oil cysts. No suspicious grouping of calcifications or mass. MM/MM scr BI tomosynthesis [id number] IMPRESSION: BI-RADS: 2 - Benign. FOLLOW UP: 1 Year Follow-up
== END 2024-06-28 08:50 | disposition home or self-care (01) ==
PROVIDERS: PCP Family Medicine; Visit Provider Nurse Practitioner Women's Health
DX: Z12.31 Encounter for screening mammogram for malignant neoplasm of breast (principal); R92.313 Mammographic fatty tissue density, bilateral breasts; N60.11 Diffuse cystic mastopathy of right breast
CPT/HCPCS: 77063; 77067

== ENCOUNTER → 2024-07-15 12:29 | Outpatient (BNVA) | payer MEDICARE, MEDICAID, SELFPAY ==
[2024-05-15 11:47] VITALS: BP 140/78; BMI 42.9
== END ==
PROVIDERS: PCP Family Medicine; Visit Provider Nurse Practitioner Family
DX: L73.2 Hidradenitis suppurativa (principal); L05.91 Pilonidal cyst without abscess; L23.9 Allergic contact dermatitis, unspecified cause; Z87.2 Personal history of diseases of the skin and subcutaneous tissue
CPT/HCPCS: 99214

== ENCOUNTER → 2024-07-16 10:59 | Outpatient (BNVA) | payer MEDICARE, OTHER, SELFPAY ==
[2024-05-15 11:47] VITALS: BP 140/78; BMI 42.9
== END ==
PROVIDERS: PCP Family Medicine; Visit Provider Psychiatry & Neurology Psychiatry
DX: F11.20 Opioid dependence, uncomplicated (principal); F12.20 Cannabis dependence, uncomplicated; Z79.899 Other long term (current) drug therapy
CPT/HCPCS: 80307

== ENCOUNTER → 2024-07-17 08:31 | Outpatient (BNVA) | payer MEDICARE, MEDICAID, SELFPAY ==
[2024-05-15 11:47] VITALS: BP 140/78; BMI 42.9
== END ==
PROVIDERS: PCP Family Medicine; Visit Provider Nurse Practitioner Family
DX: I10 Essential (primary) hypertension (principal); E11.9 Type 2 diabetes mellitus without complications; F41.9 Anxiety disorder, unspecified; E78.00 Pure hypercholesterolemia, unspecified; E03.9 Hypothyroidism, unspecified
CPT/HCPCS: 80053; 80061; 81003; 82306; 83036; 84439; 84443; 84481; 85025; 86376

== ENCOUNTER → 2024-07-18 10:41 | Outpatient (BNVA) | payer MEDICARE, MEDICAID, SELFPAY ==
[2024-05-15 11:47] VITALS: BP 140/78; BMI 42.9
== END ==
PROVIDERS: PCP Family Medicine; Visit Provider Nurse Practitioner Family
DX: D64.9 Anemia, unspecified (principal)
CPT/HCPCS: 82728; 83550

== ENCOUNTER 2024-07-19 14:32 | Outpatient (CLI) | payer MEDICARE, MEDICAID, SELFPAY ==
[2024-05-15 11:47] VITALS: BP 140/78; BMI 42.9
--- NOTE | 2024-07-19 14:45 | USR_ITS ---
PROCEDURE INFORMATION: Exam: US Soft Tissue Head and Neck, Thyroid Exam date and time: 07/19/2024 3:18 PM Age: 44 years old Clinical indication: Other: Anxiety disorder, unspecified; Additional info: F41.9 - anxiety disorder, unspecified TECHNIQUE: Imaging protocol: Real-time ultrasound scan of the neck with image documentation. Exam focused on the thyroid. COMPARISON: No relevant prior studies available. FINDINGS: Right thyroid lobe: The right thyroid lobe measures 3.8 x 2.3 x 1.5 cm and demonstrates a diffusely heterogeneous pattern without discrete nodule. Left thyroid lobe: The left thyroid lobe measures 3.2 x 1.7 x 1.5 cm and demonstrates a diffusely heterogeneous pattern without discrete nodule. Isthmus: No nodules. US/US thyroid [id number] IMPRESSION: Heterogeneous thyroid gland suggesting chronic thyroiditis
== END 2024-07-19 14:33 | disposition home or self-care (01) ==
LOC: RAD 14:34
PROVIDERS: PCP Nurse Practitioner Family; Visit Provider Nurse Practitioner Family
DX: F41.9 Anxiety disorder, unspecified (principal); I10 Essential (primary) hypertension; E78.00 Pure hypercholesterolemia, unspecified; E11.9 Type 2 diabetes mellitus without complications; E03.9 Hypothyroidism, unspecified; E04.2 Nontoxic multinodular goiter
CPT/HCPCS: 76536

== ENCOUNTER → 2024-07-23 08:48 | Outpatient (BNVA) | payer MEDICARE, MEDICAID, SELFPAY ==
[2024-05-15 11:47] VITALS: BP 140/78; BMI 42.9
== END ==
PROVIDERS: PCP Nurse Practitioner Family; Visit Provider Nurse Practitioner Family
DX: E06.3 Autoimmune thyroiditis (principal); Z09 Encounter for follow-up examination after completed treatment for conditions other than malignant neoplasm
CPT/HCPCS: 82270

== ENCOUNTER → 2024-07-24 12:56 | Outpatient (BNVA) | payer MEDICARE, MEDICAID, SELFPAY ==
[2024-05-15 11:47] VITALS: BP 140/78; BMI 42.9
== END ==
PROVIDERS: PCP Nurse Practitioner Family; Visit Provider Surgery
DX: E66.813 Obesity, class 3 (principal); E66.01 Morbid (severe) obesity due to excess calories; Z68.41 Body mass index [BMI] 40.0-44.9, adult; L05.01 Pilonidal cyst with abscess
CPT/HCPCS: 99214

== ENCOUNTER → 2024-08-12 07:21 | Day surgery (SDC) | payer MEDICARE, MEDICAID, SELFPAY ==
[2024-05-15 11:47] VITALS: BP 140/78; BMI 42.9
[2024-08-12] VITALS (11 sets, daily range): BP systolic 105–182; BP diastolic 68–88; PULSE 98–131; RESP 16–28; TEMP 36–37.1; O2SAT 96–100; BMI 42.3
--- NOTE | 2024-08-12 07:55 | ANES.PREANE2 ---
Pre-Anesthetic Assessment Height/Weight: Height 5 ft 7 in Weight 270 lb Preop Diagnosis: Bilateral hidradenitis of the axilla Operation Date: 08/12/24 09:20 Proposed Procedures p hidradenitis of bilateral axilla excised(Bilateral) - Drew Baker MD Was Beta Sajan taken within 24 hours: N/A Was Clonidine taken within 24 hours: N/A Social Tobacco and No alcohol Exam alert, oriented x 3, clear to auscultation bilaterally and regular rate & rhythm Airway Submandibular: within normal limits Cervical ROM: within normal limits Mallampati: Class II Dentition: partials Anesthetic Plan ASA status: 3 Anesthesia: General Other: No prior issues with anesthesia NPO since yesterday Patient has a history of opioid dependence, on chronic Suboxone. Patient states that she stopped this 2 weeks ago Current smoker, history of asthma PTSD/bipolar 1 disorder BMI 42 GERD Recent labs reviewed and acceptable for procedure EKG showing sinus rhythm Plan for general anesthesia Medications/Allergies Home Medications ?Medication ?Instructions ?Recorded ?Confirmed ?Last Taken ?Type albuterol sulfate 90 mcg/actuation 2 puff inhalation Q6H PRN 07/12/24 08/09/24 Unknown Rx aerosol inhaler (Ventolin HFA) shortness of breath or wheezing #8.5 grams budesonide-formoterol HFA 160 2 puff inhalation BID 30 days 07/12/24 08/09/24 08/09/24 Rx mcg-4.5 mcg/actuation aerosol #10.2 grams inhaler (Symbicort) buprenorphine 8 mg-naloxone 2 mg 2.5 film sublingual DAILY #75 ea 07/15/24 08/09/24 Unknown Rx sublingual film (Suboxone) aripiprazole 20 mg tablet (Abilify) 20 mg PO DAILY #30 tabs 07/16/24 08/09/24 08/09/24 Rx aripiprazole 400 mg intramuscular 400 mg IM Q28D #1 ea 07/16/24 08/09/24 Unknown Rx suspension,extended release (Abilify Maintena) benztropine 1 mg tablet 1 mg PO BID 30 days #60 tabs 07/16/24 08/09/24 08/09/24 Rx bupropion HCl 150 mg 24 hr tablet, 150 mg PO DAILY 30 days #30 tabs 07/16/24 08/09/2408/09/25 Rx extended release doxepin 50 mg capsule 50 mg PO .HS #30 caps 07/16/24 08/09/24 Unknown Rx hydroxyzine pamoate 50 mg capsule 50 mg PO QID PRN anxiety #120 caps 07/16/24 08/09/24 Unknown Rx venlafaxine 150 mg 300 mg (2 x 150 mg) PO DAILY 30 07/16/24 08/09/24 08/09/24 Rx capsule,extended release 24 hr days #60 caps levothyroxine 137 mcg capsule 137 mcg PO DAILY 30 days #30 caps 07/18/24 08/09/24 08/09/24 Rx tirzepatide 2.5 mg/0.5 mL 2.5 mg (0.5 mL) SUBCUT .Weekly 30 07/18/24 08/09/24 08/02/24 Rx subcutaneous pen injector days #2 mL (Teresa) triamcinolone acetonide 0.1 % applic topical 07/18/24 08/02/24 Unknown History topical cream ferrous gluconate 324 mg (37.5 mg 324 mg PO DAILY #30 tabs 07/19/24 08/09/24 08/09/24 Rx iron) tablet celecoxib 100 mg capsule (Celebrex) 100 mg PO BID 30 days #60 caps 08/02/24 08/09/24 08/09/24 Rx chlorpromazine 50 mg tablet 50 mg PO BID PRN agitation #60 tabs 08/06/24 08/09/24 Unknown Rx Allergies Allergy/AdvReac Type Severity Reaction Status Date / Time acetaminophen (From Tylenol) Allergy Severe facial Verified 08/02/24 11:41 swelling lisinopril Allergy Severe facial Verified 08/02/24 11:41 swelling red dye Allergy Intermediate ADR-Irritab Verified 08/02/24 11:41 le meperidine (From Demerol) Allergy Unknown Unknown Verified 08/02/24 11:41 NSAIDS (Non-Steroidal Allergy Unknown Verified 08/02/24 11:41 [facility] Medical History (Updated 07/28/24 @ 20:14 by ANIA Alicia) Drug-induced xerostomia Dry mouth Multiple joint pain Hypothyroidism due to [place]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 Grandfather Cancer Maternal-colon Father Cancer, Onset Age: 49 pancreatic Family/Other Cancer Maternal aunt-breast and bone Other Bleeding disorder Dementia Diabetes Hyperlipidemia Hypertension Lung disease Stroke Denies family history of CAD (coronary artery disease) Clotting disorder Psychiatric illness Chronic kidney disease (CKD) Anesthesia complication Social History Smoking and tobacco/nicotine status: current every day tobacco/nicotine user cigarettes Packs smoked per day: 1 Years cigarettes smoked: 26 Quit status (tobacco/nicotine): considering quitting Second hand smoke exposure: Yes Alcohol intake: former Former alcohol use details: 04.26.2013 Substance/Drug Use: former Date of last use: 02.13.24 Adopted: No Caregiver/support person: No Lives independently: Yes Household members: spouse and family Marital status: Marital status details: 10.13.23 Number of children: 2 Number of grandchildren: 0 Highest education level completed: GED or Equivalent Current occupational status: disabled Pets and animals: Yes Pets & animals: cat(s) and dog(s) Leisure activites: music and other Leisure activities details: win painting, journaling Sexually active: Yes Do you think of yourself as: Straight/Heterosexual Current gender identity: Female Rocio/Christian: Anabaptism Special rocio needs: No Agree to transfusion: Yes Female Reproductive History Date of last menstrual period: 07/23/24 Para: 3 Spontaneous abortions: No Data Anesthesia Cardiac Studies: No Data to Display
[2024-08-12 07:58] LABS: Glucose Point of Care 113 mg/dL (70-110)
[2024-08-12] MEDS: sodium chloride 0.9% 1,000 ML 30 ML IV (08:08)
[2024-08-12] MEDS: scopolamine 1 mg PATCH 1 PATCH TRANSDERMA (08:19)
--- NOTE | 2024-08-12 08:28 | W.PM.OPSUD ---
Surgery/Procedure H&P Update DATE OF PROCEDURE: August 12, 2024 DATE H&P PERFORMED: 07/24/24 H&P UPDATE INFORMATION: I have reviewed H&P completed within last 30 days, I have examined patient prior to procedure, No changes to prior documentation, H&P is in [facility] EMR on date indicated and Risks and benefits of the procedure reviewed PREOP DIAGNOSIS: Bilateral hidradenitis of the axilla PLANNED PROCEDURE: Operation Date: 08/12/24 09:20 Proposed Procedures p hidradenitis of bilateral axilla excised(Bilateral) - Drew Baker MD
[2024-08-12 08:33] LABS: OR HCG Qualitative Urine Negative (Negative)
[2024-08-12] MEDS: ceFAZolin 3,000 MG in sodium chloride 0.9% (plus) 100 ML 200 MG IV (09:00)
[2024-08-12] MEDS: lidocaine-epi 1% PF 1:200,000 30 mL SDV INJECTION (10:13)
[2024-08-12] MEDS: BUPivacaine 0.25% INJ 30 mL INJECTION (10:13)
--- NOTE | 2024-08-12 10:34 | P.OP_ITS ---
Operative Report Date of procedure: August 12, 2024 Pre-op diagnosis: Bilateral axillary hidradenitis Post-op diagnosis: Same Post-op findings: Several patches of axillary hidradenitis on the left and right axilla. 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 During evaluation in the preop holding the areas were marked on the left side there is a large area with scar tissue and hidradenitis, on the right axilla there is multiple areas of concern due to the extent of this disease we have decided to proceed with excision of the area that is given the patient majority of symptoms to prevent major wounds that can lead to wound related complications. Patient has agreed to this approach all risk and benefits were discussed and documented Procedure: Patient was brought into the OR, she was placed in a supine position. General anesthesia was given. Bilateral axillas were prepped and draped in the usual sterile fashion. A timeout was conducted. I placed my attention on the left axilla, the area that was previously marked was involved with elliptical incision measuring about 10 cm. The incision was deepened to the subcutaneous tissue, the tissue was elevated with Allis clamps and then excised with electrocautery. Making sure of not leaving any glandular tissue underneath. The complete area of excision was 10x 2 x 1 cm hemostasis was achieved. Small skin flaps were created to allow for better closure. The wound was then irrigated. Local anesthesia was infiltrated. The wound was closed in layers using #3-0 Vicryl for the subcutaneous tissue #3-0 nylon vertical mattress sutures for the skin. Steri-Strips were applied. I then placed my attention to the right axilla. the area that was previously marked was involved with elliptical incision measuring about 6 cm. The incision was deepened to the subcutaneous tissue, the tissue was elevated with Allis clamps and then excised with electrocautery. Making sure of not leaving any glandular tissue underneath. The complete area of excision was 6 x 2 x 1 cm hemostasis was achieved. Small skin flaps were created to allow for better closure. The wound was then irrigated. Local anesthesia was infiltrated. The wound was closed in layers using #3-0 Vicryl for the subcutaneous tissue #3-0 nylon vertical mattress sutures for the skin. Steri-Strips were applied. At the end of the procedure all counts were correct, the patient tolerated well the procedure was transferred to PACU in stable condition
[2024-08-12] MEDS: oxyCODONE 5 mg IR Tab/Cap PO (11:29)
--- NOTE | 2024-08-12 11:55 | ANE.PACU2 ---
Inpatient post-anesthesia follow up: Airway intact: Yes Vital signs: Temperature 97 F Pulse Rate 111 Respiratory Rate 18 Blood Pressure 128/68 Pulse Oximetry 97 Oxygen Delivery Me thod Room Air Oxygen Flow Rate 8 Fraction of Inspir ed Oxygen Hydration adequate: Yes Nausea and vomiting: No Pain level: 1 Mental status: Baseline
== END | disposition home or self-care (01) ==
PROVIDERS: Student in an Organized Health Care Education/Training Program; PCP Nurse Practitioner Family; Visit Provider Surgery
PROC: (CPT 11450; principal; 2024-08-12 09:10)
DX: L73.2 Hidradenitis suppurativa (principal); L72.0 Epidermal cyst; K21.9 Gastro-esophageal reflux disease without esophagitis; E06.3 Autoimmune thyroiditis; I10 Essential (primary) hypertension; E11.9 Type 2 diabetes mellitus without complications; E66.813 Obesity, class 3; F17.210 Nicotine dependence, cigarettes, uncomplicated; F31.9 Bipolar disorder, unspecified; F43.10 Post-traumatic stress disorder, unspecified; Z79.899 Other long term (current) drug therapy; Z79.890 Hormone replacement therapy; Z79.85 Long-term (current) use of injectable non-insulin antidiabetic drugs; Z88.8 Allergy status to other drugs, medicaments and biological substances; Z68.41 Body mass index [BMI] 40.0-44.9, adult
CPT/HCPCS: 11450; 36416; 81025; 82962; 88307; J0690; J1171; J2250; J2405; J2704; J3010; J3490; J7030; J9999

== ENCOUNTER → 2024-08-16 13:17 | Outpatient (BNVA) | payer MEDICARE, SELFPAY ==
[2024-05-15 11:47] VITALS: BP 140/78; BMI 42.9
== END ==
PROVIDERS: PCP Nurse Practitioner Family; Visit Provider Psychiatry & Neurology Psychiatry
DX: F11.20 Opioid dependence, uncomplicated (principal); Z79.899 Other long term (current) drug therapy
CPT/HCPCS: 80307

== ENCOUNTER → 2024-08-27 14:04 | Outpatient (BNVA) | payer MEDICARE, MEDICAID, SELFPAY ==
[2024-05-15 11:47] VITALS: BP 140/78; BMI 42.9
== END ==
PROVIDERS: PCP Nurse Practitioner Family; Visit Provider Surgery
DX: L73.2 Hidradenitis suppurativa (principal)
CPT/HCPCS: 99024

== ENCOUNTER → 2024-09-04 12:55 | Outpatient (BNVA) | payer MEDICARE, SELFPAY ==
[2024-05-15 11:47] VITALS: BP 140/78; BMI 42.9
== END ==
PROVIDERS: PCP Family Medicine; Visit Provider Surgery
DX: L73.2 Hidradenitis suppurativa (principal)
CPT/HCPCS: 99024

== ENCOUNTER → 2024-10-09 13:55 | Outpatient (BNVA) | payer MEDICARE, SELFPAY ==
[2024-05-15 11:47] VITALS: BP 140/78; BMI 42.9
== END ==
PROVIDERS: PCP Family Medicine; Visit Provider Surgery
DX: T81.30XA Disruption of wound, unspecified, initial encounter (principal); X58.XXXA Exposure to other specified factors, initial encounter; Z98.890 Other specified postprocedural states
CPT/HCPCS: 99024

== ENCOUNTER → 2024-10-10 12:54 | Outpatient (BNVA) | payer MEDICARE, SELFPAY ==
[2024-05-15 11:47] VITALS: BP 140/78; BMI 42.9
== END ==
PROVIDERS: PCP Family Medicine; Visit Provider Psychiatry & Neurology Psychiatry
DX: F11.20 Opioid dependence, uncomplicated (principal); Z79.899 Other long term (current) drug therapy
CPT/HCPCS: 80307

== ENCOUNTER → 2024-10-18 08:58 | Outpatient (BNVA) | payer MEDICARE, SELFPAY ==
[2024-05-15 11:47] VITALS: BP 140/78; BMI 42.9
== END ==
PROVIDERS: PCP Family Medicine; Visit Provider Thoracic Surgery (Cardiothoracic Vascular Surgery)
DX: I96 Gangrene, not elsewhere classified (principal); T81.31XD Disruption of external operation (surgical) wound, not elsewhere classified, subsequent encounter; Y83.8 Other surgical procedures as the cause of abnormal reaction of the patient, or of later complication, without mention of misadventure at the time of the procedure
CPT/HCPCS: 11042; 99213

== ENCOUNTER → 2024-12-12 11:21 | Outpatient (BNVA) | payer MEDICARE, MEDICAID, SELFPAY ==
[2024-05-15 11:47] VITALS: BP 140/78; BMI 42.9
== END ==
PROVIDERS: PCP Nurse Practitioner Family; Visit Provider Internal Medicine
DX: E11.9 Type 2 diabetes mellitus without complications (principal); E03.8 Other specified hypothyroidism
CPT/HCPCS: 99214

== ENCOUNTER → 2025-02-04 11:13 | Outpatient (BNVA) | payer MEDICARE, MEDICAID, SELFPAY ==
[2024-05-15 11:47] VITALS: BP 140/78; BMI 42.9
== END ==
PROVIDERS: PCP Nurse Practitioner Family; Visit Provider Nurse Practitioner Family
DX: S50.11XA Contusion of right forearm, initial encounter (principal); X58.XXXA Exposure to other specified factors, initial encounter
CPT/HCPCS: 73060; 73090; 73130

== ENCOUNTER → 2025-03-04 11:22 | Outpatient (BNVA) | payer MEDICARE, MEDICAID, SELFPAY ==
[2024-05-15 11:47] VITALS: BP 140/78; BMI 42.9
== END ==
PROVIDERS: PCP Nurse Practitioner Family; Visit Provider Nurse Practitioner Family
DX: D64.9 Anemia, unspecified (principal); E11.9 Type 2 diabetes mellitus without complications; E03.8 Other specified hypothyroidism
CPT/HCPCS: 80053; 80061; 82043; 82728; 83036; 83550; 84439; 84443

== ENCOUNTER 2025-03-05 10:10 | Emergency (ER) | payer MEDICARE, MEDICAID, SELFPAY ==
--- OUTSIDE RECORDS SUMMARY | 2024-02-05 07:17 | XMS_ITS | Continuity of Care Document ---
Author Organization [facility] Address [address] [place] [address] Phone Care Team Providers Care Ip Paralegal Name Role Phone Keeley Puentes Unavailable Unavailable Allergies, Adverse Reactions, Alerts Substance Reaction Status Criticality lisinopril Facial swelling(moderate) Active Hi gh ibuprofen Active No Information NSAIDS (Non-Steroidal Anti-Inflammatory Drug) Active No Information acetaminophen Active No Information MEPERIDINE HCL Active No Informatio n Medications Medication Instructions Dosage Effective Dates (start - stop) Status Comments Rexulti 0.5 mg tablet take 2 tabletst by oral route every evening with food - Active trazodone 150 mg tablet take up to 3 tablets by oral route every bedtime as needed - Active Prozac 40 mg capsule take two capsules daily - Active propranolol 40 mg tablet take 1 tablet by oral route 2 times every day 40 MG - Active prazosin 2 mg capsule take 1 capsule by oral route every day 2 MG - Active Abilify Maintena 400 mg intramuscular suspension,extended release inject (400MG) by intramuscular route every 28 days - Active insurance will only pay for every 28 days and not every 3 weeks. gabapentin 800 mg tablet take 1 tablet by oral route 3 times every day 800 MG - Active buspirone 30 mg tablet take 1 tablet by oral route 2 times every day 30 MG - Active ALBUTEROL AER HFA INHALE 2 PUFFS BY MOUTH EVERY 4-6 HOURS NEEDED Feb-25-2021 - Active albuterol sulfate 2.5 mg/3 mL (0.083 %) solution for nebulization inhale 3 milliliter by nebulization route 4 times every day 2.5 MG - Active Lasix 20 mg tablet take 1 tablet by oral route every day 20 MG - Active metformin 500 mg tablet take 1 tablet by oral route 2 times every day with morning and evening meals 500 MG - Active Protonix 40 mg tablet,delayed release take 1 tablet by oral route every day 40 MG - Active losartan 25 mg tablet take 1 tablet by oral route every day 25 MG - Active levothyroxine 200 mcg tablet take 1 tablet by oral route every day 200 MCG - Active Procedures Procedure Date [facility] DRUG TEST PRSMV DIR OPT OBS [facility] DRUG TEST PRSMV DIR OPT OBS DRUG TEST PRSMV DIR OPT OBS DRUG TEST PRSMV DIR OPT OBS DRUG TEST PRSMV DIR OPT OBS DRUG TEST PRSMV DIR OPT OBS DRUG TEST PRSMV DIR OPT OBS DRUG TEST PRSMV DIR OPT OBS OFFICE/OUTPATIENT VISIT, EST OFFICE/OUTPATIENT VISIT, EST OFFICE/OUTPATIENT VISIT, EST [facility] OFFICE/OUTPATIENT VISIT, EST OFFICE/OUTPATIENT VISIT, EST Inj aripiprazole ext rel 1mg Patient Med THER/PROPH/DIAG INJ, SC/IM Inj aripiprazole ext rel 1mg Patient Med THER/PROPH/DIAG INJ, SC/IM OFFICE/OUTPATIENT VISIT, EST OFFICE/OUTPATIENT VISIT, EST ROUTINE VENIPUNCTURE COMPLETE CBC W/AUTO DIFF WBC COMPREHEN METABOLIC PANEL ASSAY OF FREE THYROXINE GLYCATED HEMOGLOBIN TEST ASSAY THYROID STIM HORMONE OFFICE/OUTPATIENT VISIT, EST ROUTINE VENIPUNCTURE ASSAY THYROID STIM HORMONE Admin influenza virus vac CCIIV4 VAC NO PRSV 0.5 ML IM OFFICE/OUTPATIENT VISIT, EST ROUTINE VENIPUNCTURE COMPLETE CBC W/AUTO DIFF WBC COMPREHEN METABOLIC PANEL GLYCATED HEMOGLOBIN TEST ASSAY THYROID STIM HORMONE LIPID PANEL OFFICE/OUTPATIENT VISIT, EST OFFICE/OUTPATIENT VISIT, EST OFFICE/OUTPATIENT VISIT, EST OFFICE/OUTPATIENT VISIT, EST OFFICE/OUTPATIENT VISIT, EST URINE TEST OFFICE/OUTPATIENT VISIT, EST ROUTINE VENIPUNCTURE COMPLETE CBC W/AUTO DIFF WBC BASIC METABOLIC PANEL ASSAY THYROID STIM HORMONE LIPID PANEL OFFICE/OUTPATIENT VISIT, EST OFFICE/OUTPATIENT VISIT, EST OFFICE/OUTPATIENT VISIT, EST ROUTINE VENIPUNCTURE COMPLETE CBC W/AUTO DIFF WBC COMPREHEN METABOLIC PANEL GLYCATED HEMOGLOBIN TEST ASSAY THYROID STIM HORMONE ASSAY OF VITAMIN D LIPID PANEL OFFICE/OUTPATIENT VISIT, EST OFFICE/OUTPATIENT VISIT, EST OFFICE/OUTPATIENT VISIT, EST OFFICE/OUTPATIENT VISIT, EST Inj aripiprazole ext rel 1mg Patient Med THER/PROPH/DIAG INJ, SC/IM ROUTINE VENIPUNCTURE COMPLETE CBC W/AUTO DIFF WBC COMPREHEN METABOLIC PANEL GLYCATED HEMOGLOBIN TEST ASSAY THYROID STIM HORMONE ASSAY OF VITAMIN D LIPID PANEL Admin influenza virus vac CCIIV4 VAC NO PRSV 0.5 ML IM Admin pneumococcal vaccine PNEUMOCOCCAL VACCINE OFFICE/OUTPATIENT VISIT, EST PSYCH DIAG EVAL W/MED SRVCS [facility] Claim Split OFFICE/OUTPATIENT VISIT, EST [facility] Claim Split OFFICE/OUTPATIENT VISIT, EST COMPLETE CBC W/AUTO DIFF WBC ASSAY OF VITAMIN D LIPID PANEL ASSAY THYROID STIM HORMONE ROUTINE VENIPUNCTURE OFFICE/OUTPATIENT VISIT, EST [facility] Claim Split Comprehensive Periodontal Evaluation-[place] Establ ASSAY THYROID STIM HORMONE LIPID PANEL ROUTINE VENIPUNCTURE OFFICE/OUTPATIENT VISIT, EST OFFICE/OUTPATIENT VISIT, EST OFFICE/OUTPATIENT VISIT, EST OFFICE/OUTPATIENT VISIT, EST OFFICE/OUTPATIENT VISIT, EST ASSAY THYROID STIM HORMONE ASSAY, TRIIODOTHYRONINE (T3) ASSAY OF TOTAL THYROXINE FREE ASSAY (FT-3) ASSAY OF FREE THYROXINE ROUTINE VENIPUNCTURE OFFICE/OUTPATIENT VISIT, EST LIPID PANEL ASSAY THYROID STIM HORMONE FREE ASSAY (FT-3) ASSAY OF FREE THYROXINE ASSAY, TRIIODOTHYRONINE (T3) ASSAY OF TOTAL THYROXINE OFFICE/OUTPATIENT VISIT, EST OFFICE/OUTPATIENT VISIT, EST OFFICE/OUTPATIENT VISIT, EST OFFICE/OUTPATIENT VISIT, EST OFFICE/OUTPATIENT VISIT, EST OFFICE/OUTPATIENT VISIT, EST FREE ASSAY (FT-3) ASSAY THYROID STIM HORMONE ASSAY OF FREE THYROXINE ASSAY, TRIIODOTHYRONINE (T3) ASSAY OF TOTAL THYROXINE OFFICE/OUTPATIENT VISIT, EST OFFICE/OUTPATIENT VISIT, EST Bicuspid (Excluding Final Confucianist) S Bicuspid (Excluding Final Confucianist) S Local Anesthesia Core Buildup, Including Any Pins 2016 Core Buildup, Including Any Pins 2016 Limited Evaluation Panoramic Film Bitewing Four Films Intraoral Periapical First Film 017 Intraoral Periapical Each Additional Dec Intraoral Periapical Each Additional Dec Intraoral Periapical Each Additional Dec Comprehensive Periodontal Evaluation-[place] Establ OFFICE/OUTPATIENT VISIT, EST Not Completed OFFICE/OUTPATIENT VISIT, EST OFFICE/OUTPATIENT VISIT, EST OFFICE/OUTPATIENT VISIT, EST OFFICE/OUTPATIENT VISIT, EST COMPLETE CBC W/AUTO DIFF WBC COMPREHEN METABOLIC PANEL LIPID PANEL ASSAY THYROID STIM HORMONE ASSAY OF VITAMIN D VITAMIN B-12 BLOOD FOLIC ACID SERUM ASSAY OF MAGNESIUM ASSAY, CARBAMAZEPINE, TOTAL GLYCATED HEMOGLOBIN TEST OFFICE/OUTPATIENT VISIT, EST OFFICE/OUTPATIENT VISIT, EST OFFICE/OUTPATIENT VISIT, EST OFFICE/OUTPATIENT VISIT, EST OFFICE/OUTPATIENT VISIT, EST OFFICE/OUTPATIENT VISIT, EST OFFICE/OUTPATIENT VISIT, EST ROUTINE VENIPUNCTURE OFFICE/OUTPATIENT VISIT, EST OFFICE/OUTPATIENT VISIT, EST ROUTINE VENIPUNCTURE OFFICE/OUTPATIENT VISIT, EST OFFICE/OUTPATIENT VISIT, EST OFFICE/OUTPATIENT VISIT, EST Tx Comp OFFICE/OUTPATIENT VISIT, EST OFFICE/OUTPATIENT VISIT, EST OFFICE/OUTPATIENT VISIT, EST OFFICE/OUTPATIENT VISIT, NEW Not Completed OFFICE/OUTPATIENT VISIT, EST OFFICE/OUTPATIENT VISIT, EST OFFICE/OUTPATIENT VISIT, EST OFFICE/OUTPATIENT VISIT, EST OFFICE/OUTPATIENT VISIT, EST OFFICE/OUTPATIENT VISIT, NEW Advance Directives Directive Yes / No Effective Date File Name No Information Encounters Encounter Description Practice Location Reason(s) For Visit Diagnoses Date Provider Providers Copied on Encounter [facility], [address] [facility], [place], [id number], [place] tel:[phone] [facility] No Information 4 Ken Keeley. [address], [id number] [place], [id number], [place]. tel:[phone] [facility], [address] [facility], [place], [id number], [place] tel:[phone] [facility] No Information 2 Caterina Josette. [address], [id number] [place], [id number], [place]. tel:[phone] [facility], [address] [employer], [place], [id number], [place] tel:[phone] [facility] f/u for medication management (chief complaint) Bipolar disorderGene ralized Anxiety DisorderPost -traumatic stress disorder, chronicInsom niaAmphetami ne type substance use disorder, moderate, in early remissionOpi oid Use Disorder, Moderate, In sustained remissionTob acco useOther obesity due to excess caloriesFami ly history of alcohol abuse and dependenceFa kenan history of other substance abuse and dependence 1 Caterina Josette. [address], [id number] [facility] [place] [id number], [place]. tel:[phone] Referring Provider: Josette Diggs, [address] [id number] [place], [address]. tel:[phone] [facility], [address], [place], [id number], [place] tel:[phone] [facility] Bipolar disorderGene ralized Anxiety DisorderPost -traumatic stress disorder, chronicInsom niaAmphetami ne type substance use disorder, moderate, in early remissionTob acco useOpioid Use Disorder, Moderate, In sustained remissionOth er obesity due to excess caloriesFami ly history of other mental and behavioral disordersFam vonda history of alcohol abuse and dependenceFa kenan history of other substance abuse and dependenceBo dy mass index (BMI) 50-59.9 , adult 1 Caterina Josette. [address], [id number] [place], [id number], [place]. tel:[phone] Referring Provider: Josette Diggs, [address] [id number] [place], [address]. tel:[phone] [facility], [address], [place], [id number], [place] tel:[phone] [facility] Bipolar disorderGene ralized Anxiety DisorderPost -traumatic stress disorder, chronicInsom niaAmphetami ne type substance use disorder, moderate, in early remissionTob acco useOpioid Use Disorder, Moderate, In sustained remissionOth er obesity due to excess caloriesFami ly history of other mental and behavioral disordersFam vonda history of alcohol abuse and dependenceFa kenan history of other substance abuse and dependenceBo dy mass index (BMI) 50-59.9 , adult 1 Caterina Josette. [address], [id number] [place], [id number], [place]. tel:[phone] Referring Provider: Josette Diggs, [address] [id number] [place], [address]. tel:[phone] [facility], [address], [place], [id number], [place] tel:[phone] [facility] Bipolar disorderGene ralized Anxiety DisorderPost -traumatic stress disorder, chronicInsom niaAmphetami ne type substance use disorder, moderate, in early remissionTob acco useOpioid Use Disorder, Moderate, In sustained remissionOth er obesity due to excess caloriesFami ly history of other mental and behavioral disordersFam vonda history of alcohol abuse and dependenceFa kenan history of other substance abuse and dependenceBo dy mass index (BMI) 50-59.9 , adult 1 Caterina Josette. [address], [id number] [address], [place], [id number], [place]. tel:[phone] Referring Provider: Josette Diggs, [address] [id number] [place], [address]. tel:[phone] [facility], [address], [place], [id number], [place] tel:[phone] [facility] Tobacco useBipolar disorderGene ralized Anxiety DisorderPost -traumatic stress disorder, chronicInsom niaAmphetami ne type substance use disorder, moderate, in early remissionOpi oid Use Disorder, Moderate, In sustained remissionOth er obesity due to excess caloriesFami ly history of other mental and behavioral disordersFam vonda history of alcohol abuse and dependenceFa kenan history of other substance abuse and dependenceBo dy mass index (BMI) 50-59.9 , adult Oct-2 2-202 1 Caterina Josette. [address], [id number] [place], [id number], [place]. tel:[phone] Referring Provider: Josette Diggs, [address] [id number] [place], [address]. tel:[phone] [facility], [address], [place], [id number], [place] tel:[phone] [facility] Tobacco useOther obesity due to excess caloriesBipo lar disorderGene ralized Anxiety DisorderPost -traumatic stress disorder, chronicInsom niaAmphetami ne type substance use disorder, moderate, in early remissionOpi oid Use Disorder, Moderate, In sustained remissionFam vonda history of other mental and behavioral disordersFam vonda history of alcohol abuse and dependenceFa kenan history of other substance abuse and dependenceBo dy mass index (BMI) 50-59.9 , adult Sep- 1 Caterina Josette. [address], [id number] [place], [id number], [place]. tel:[phone] Referring Provider: Josette Diggs, [address] [id number] [place], [address]. tel:[phone] [facility], [address], [place], [id number], [place] tel:[phone] [facility] Body mass index (BMI) 50-59.9 , adultTobacco useGeneraliz ed Anxiety DisorderPost -traumatic stress disorder, chronicInsom niaFamily history of other mental and behavioral disordersFam vonda history of alcohol abuse and dependenceFa kenan history of other substance abuse and dependenceOt her obesity due to excess caloriesBipo lar disorderAmph etamine type substance use disorder, moderate, in early remissionOpi oid Use Disorder, Moderate, In sustained remission Bo-0 1 Caterinascott Finch. [address], [id number] [place], [id number], [place]. tel:[phone] Referring Provider: Josette Diggs, [address] [id number] [place], [address]. tel:[phone] [facility], [address], [place], [id number], [place] tel:[phone] [facility] Tobacco useBipolar disorder, current episode mixed, moderateGene ralized Anxiety DisorderOpio id Use Disorder, Moderate, In early remissionAmp hetamine type substance use disorder, moderatePost -traumatic stress disorder, chronicInsom niaFamily history of other mental and behavioral disordersFam vonda history of alcohol abuse and dependenceFa kenan history of other substance abuse and dependenceBo dy mass index (BMI) 45.0-49.9, adult 1 Caterina Josette. [address], [id number] [place], [id number], [place]. tel:[phone] Referring Provider: Josette Diggs, [address] [id number] [place], [address]. tel:[phone] [facility], [address], [place], [id number], [place] tel:[phone] [facility] Bipolar disorder, current episode mixed, moderateGene ralized Anxiety DisorderOpio id Use Disorder, Moderate, In early remissionAmp hetamine type substance use disorder, moderatePost -traumatic stress disorder, chronicInsom niaTobacco useFamily history of other mental and behavioral disordersFam vonda history of alcohol abuse and dependenceFa kenan history of other substance abuse and dependenceBo dy mass index (BMI) 45.0-49.9, adult 1 Caterina Josette. [address], [id number] [place], [id number], [place]. tel:[phone] Referring Provider: Josette Diggs, [address] [id number] [place], [address]. tel:[phone] [facility], [address], [place], [id number], [place] tel:[phone] [facility] Tobacco useBipolar disorder, current episode mixed, moderateGene ralized Anxiety DisorderOpio id Use Disorder, Moderate, In early remissionAmp hetamine type substance use disorder, moderatePost -traumatic stress disorder, chronicInsom niaFamily history of other mental and behavioral disordersFam vonda history of alcohol abuse and dependenceFa kenan history of other substance abuse and dependenceBo dy mass index (BMI) 45.0-49.9, adult Jul- 1 Caterina Josette. [address], [id number] [address], [place], [id number], [place]. tel:[phone] Referring Provider: Josette Diggs, [address] [id number] [place], [address]. tel:[phone] [facility], [address], [place], [id number], [place] tel:[phone] [facility] No Information Jun- 1 Caterina Josette. [address], [id number] [address], [place], [id number], [place]. tel:[phone] Referring Provider: Josette Diggs, [address] [id number] [address], [place], [address]. tel:[phone] [facility], [address], [place], [id number], [place] tel:[phone] [facility] Tobacco useBipolar disorder, current episode mixed, moderateGene ralized Anxiety DisorderInso mniaOpioid Use Disorder, Moderate, In early remissionAmp hetamine type substance use disorder, moderatePost -traumatic stress disorder, chronicFamil y history of other mental and behavioral disordersFam vonda history of alcohol abuse and dependenceFa kenan history of other substance abuse and dependenceBo dy mass index (BMI) 45.0-49.9, adult Jun-- 1 Caterina Josette. [address], [id number] [address], [place], [id number], [place]. tel:[phone] Referring Provider: Josette Eliasres, [address] [id number] [address], [place], [address]. tel:[phone] [facility], [address], [place], [place], [id number], [place] tel:[phone] [facility] No Information 1 Caterina Josette. [address], [id number] [address], [place], [place], [id number], [place]. tel:[phone] Referring Provider: Josette Diggs, [address] [id number] [address], [place], [address]. tel:[phone] [facility], [address], [place], [place], [id number], [place] tel:[phone] [facility] No Information 1 Caterina Josette. [address], [id number] [address], [place], [place], [id number], [place]. tel:[phone] Referring Provider: Josette Eliasres, [address] [id number] [address], [place], [address]. tel:[phone] [facility], [address], [place], [id number], [place] tel:[phone] [facility] No Information 1 Hilarioericmele Talley. [address] [place] [address] 212, [id number], [place], [place], [id number], [place]. tel:[phone] [facility], [address], [place], [place], [id number], [place] tel:[phone] [facility] No Information 1 Caterina Josette. [address], [id number] [address], [place], [place], [id number], [place]. tel:[phone] Referring Provider: Josette Diggs, [address] [id number] 0[address], [place], [address]. tel:[phone] [facility], [address], [place], [id number], [place] tel:[phone] [facility] No Information 1 Caterina Josette. [address], [id number] [address], [place], [place], [id number], [place]. tel:[phone] Referring Provider: Josette Diggs, [address] [id number] 0[address], [place], [address]. tel:[phone] [facility], [address], [place], [id number], [place] tel:[phone] [facility] No Information 1 Caterina Josette. [address], [id number] 0[address], [place], [place], [id number], [place]. tel:[phone] Referring Provider: Josette Diggs, [address] [id number] 0[address], [place], [address]. tel:[phone] [facility], [address], [place], [place], [id number], [place] tel:[phone] [facility] No Information 1 Caterina Josette. [address], [id number] 0[address], [place], [place], [id number], [place]. tel:[phone] [facility], [address], [place], [place], [id number], [place] tel:[phone] [facility] No Information 1 Caterina Josette. [address], [id number] 0[address], [place], [place], [id number], [place]. tel:[phone] Referring Provider: Josette Diggs, [address] [id number] [place], [address]. tel:[phone] OFFICE/OUTPA TIENT VISIT, EST [facility], [address], [place], [id number], [place] tel:[phone] [facility] Tobacco useBipolar disorder, current episode mixed, moderateGene ralized Anxiety DisorderInso mniaOpioid Use Disorder, Moderate, In early remissionAmp hetamine type substance use disorder, moderatePost -traumatic stress disorder, chronicFamil y history of other mental and behavioral disordersFam vonda history of alcohol abuse and dependenceFa kenan history of other substance abuse and dependenceBo dy mass index (BMI) 45.0-49.9, adult 0 1 Caterina Josette. [address], [id number] [place], [id number], [place]. tel:[phone] Referring Provider: Josette Diggs, [address] [id number] [place], [address]. tel:[phone] OFFICE/OUTPA TIENT VISIT, [facility], [address], [place], [id number], [place] tel:[phone] [facility] Bipolar disorder, current episode mixed, moderateGene ralized Anxiety DisorderInso mniaOpioid Use Disorder, Moderate, In early remissionAmp hetamine type substance use disorder, moderatePost -traumatic stress disorder, chronicFamil y history of other mental and behavioral disordersFam vonda history of alcohol abuse and dependenceFa kenan history of other substance abuse and dependenceBo dy mass index (BMI) 45.0-49.9, adult 9- 0 Caterina Josette. [address], [id number] [place], [id number], [place]. tel:[phone] Referring Provider: Josette Diggs, [address] [id number] [place], [address]. tel:[phone] [facility], [address], [place], [id number], [place] tel:[phone] [facility] No Information 0 Kaykaymele Gerri. [address] [place] [address] [address], [id number] [address] [place] [address], [id number], [place]. tel:[phone] OFFICE/OUTPA TIENT VISIT, EST [facility], [address], [place], [id number], [place] tel:[phone] 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 [address] [place] [address] [address], [id number] [address] [place] [address], [id number], [place]. tel:[phone] Referring Provider: Gerri Arambula, [address] [place] [address] [id number] [place] [address], [address]. tel:[phone] [facility], [address], [place], [id number], [place] tel:[phone] [facility] Bipolar disorder, current episode mixed, moderateGene ralized Anxiety DisorderInso mniaOpioid Use Disorder, Moderate, In early remissionAmp hetamine type substance use disorder, moderatePost -traumatic stress disorder, chronicFamil y history of other mental and behavioral disordersFam vonda history of alcohol abuse and dependenceFa kenan history of other substance abuse and dependenceBo dy mass index (BMI) 45.0-49.9, adult Sep- 0 Caterina Finch. [address], [id number] [place], [id number], [place]. tel:[phone] Referring Provider: Josette Diggs, [address] [id number] [place] [place], [address]. tel:[phone] OFFICE/OUTPA TIENT VISIT, EST [facility], [address], [place], [place], [id number], [place] tel:[phone] [facility] Body mass index (BMI) 45.0-49.9, adultBipolar disorder, current episode mixed, moderateGene ralized Anxiety DisorderInso mniaOpioid Use Disorder, Moderate, In early remissionAmp hetamine type substance use disorder, moderatePost -traumatic stress disorder, chronicFamil y history of other mental and behavioral disordersFam vonda history of alcohol abuse and dependenceFa kenan history of other substance abuse and dependence 0 Caterina Josette. [address], [id number] [place], [id number], [place]. tel:[phone] Referring Provider: Josette Diggs, [address] [id number] [place], [address]. tel:[phone] [facility], [address], [place], [id number], [place] tel:[phone] [facility] Bipolar disorder, current episode mixed, moderate Oct- 0 Caterina Josette. [address], [id number] [place], [id number], [place]. tel:[phone] Referring Provider: Josette Diggs, [address] [id number] [place], [address]. tel:[phone] [facility], [address], [place], [id number], [place] tel:[phone] [facility] Bipolar disorder, current episode mixed, moderateGene ralized Anxiety DisorderOpio id use disorder, moderate, in early remissionAmp hetamine type substance use disorder, moderatePost -traumatic stress disorder, chronicInsom niaFamily history of other mental and behavioral disordersFam vonda history of alcohol abuse and dependenceFa kenan history of other substance abuse and dependenceBo dy mass index (BMI) 45.0-49.9, adultBody mass index (BMI) 50-59.9 , adult 0 Caterina Finch. [address], [id number] 0[place], [place], [id number], [place]. tel:[phone] Referring Provider: Josette Diggs, [address] [id number] 0[place], [place], [address]. tel:[phone] [facility], [address], [place], [place], [id number], [place] tel:[phone] [facility] No Information [address] [facility] [facility] Tal[facility]. [address] [place] [address] [address], [id number] [facility], [place], [place], [id number], [place]. tel:[phone] OFFICE/OUTPA TIENT VISIT, EST [facility], [address], [place], [place], [id number], [place] tel:[phone] [facility] dizzy (chief complaint)di zzy (chief complaint)fo llow up (chief complaint) Body mass index (BMI) 45.0-49.9, adultTobacco useAcute abscess of breastDizzin essMalaise 0 Brothers Dolores. [address], [id number] 0[place], [place], [id number], [place]. tel:[phone] Referring Provider: Dolores Bowman, [address] [id number] 0[place], [place], [address]. tel:[phone] [facility], [address], [place], [place], [id number], [place] tel:[phone] [facility] Lab Work Up (chief complaint) Hypothyroidi sm 0 Tyesha Talley. [address] [place] [address] [address], [id number] 0, [place], [id number], [place]. tel:[phone] OFFICE/OUTPA TIENT VISIT, EST [facility], [address], [place], [place], [id number], [place] tel:[phone] [facility] Possible Refills (chief complaint)Pr ovider Note- H Tyesha STYLE ADVISOR-C (chief complaint) Tobacco useHypothyro idismEssenti al (primary) hypertension Hyperlipidem iaBody mass index (BMI) 45.0-49.9, adultPrediab etesNeuropat hyPain in left ankle Sep- 0 Kaykaymele Talley. [address] [place] [address] 212, [id number] 0, [place], [place], [id number], [place]. tel:[phone] Referring Provider: Gerri Arambula, [address] [place] [address] 212 [id number] 0, [place], [address]. tel:[phone] [facility], [address] [facility] ons [facility], [place], [place], [id number], tel:[phone] [facility] Lab Work Up (chief complaint) Hypothyroidi sm 0 Kaykaymele Gerri. [address] [place] [address] 212, [id number] 0[place], [place], [place], [id number], [place]. tel:[phone] OFFICE/OUTPA TIENT VISIT, EST [facility], [address], [place], [place], [id number], [place] tel:[phone] [facility] Provider Note- H Tyesha - STYLE ADVISOR-C (chief complaint)up per extremity pain (chief complaint) Body mass index (BMI) 50-59.9 , adultHypothy roidismEdema , unspecified 0 Kaykaymele Gerri. [address] [place] [address], [id number] 0[place], [place], [place], [id number], [place]. tel:[phone] Referring Provider: Gerri Arambula, [address] [place] [address] [id number] 0[place], [place], [address]. tel:[phone] [facility], [address], [place], [place], [id number], [place] tel:[phone] [facility] Patient called (chief complaint) Essential (primary) hypertension 0 Tyesha Talley. [address] [place] [address] [address], [id number] [facility], [place], [place], [id number], [place]. tel:[phone] OFFICE/OUTPA TIENT VISIT, EST [facility], [address], [place], [id number], [place] tel:[phone] [facility] follow up (chief complaint)Pr ovider Note- H Tyesha STYLE ADVISOR-C (chief complaint) Body mass index (BMI) 50-59.9 , adultHypothy roidismHyper lipidemiaEss ential (primary) hypertension 0 Kaykaymele Zimmermanher. [address] [place] [address] [address], [id number] [address] [place] [address], [id number], [place]. tel:[phone] Referring Provider: Gerri Arambula, [address] [place] [address] [id number] [facility], [place], [address]. tel:[phone] OFFICE/OUTPA TIENT VISIT, EST [facility], [address], [place], [id number], [place] tel:[phone] [facility] Body mass index (BMI) 50-59.9 , adultBipolar disorder, current episode mixed, moderateGene ralized Anxiety DisorderOpio id use disorder, moderate, in early remissionAmp hetamine type substance use disorder, moderatePost -traumatic stress disorder, chronicInsom niaFamily history of other mental and behavioral disordersFam vonda history of alcohol abuse and dependenceFa kenan history of other substance abuse and dependenceBo dy mass index (BMI) 45.0-49.9, adult 0 Caterina Finch. [address], [id number] 0, [place], [id number], [place]. tel:[phone] Referring Provider: Josette Diggs, [address] [id number] 0, [place], [address]. tel:[phone] OFFICE/OUTPA TIENT VISIT, EST [facility], [address], [place], [id number], [place] tel:[phone] [facility] Establish Care (chief complaint)Pr ovider Note- Arnoldo Roman STYLE ADVISOR-C (chief complaint) Body mass index (BMI) 45.0-49.9, adultTobacco usePneumonia 9 Tyesha Talley. [address] [place] [address], [id number] [address] [place] [address], [id number], [place]. tel:[phone] Referring Provider: Gerri Arambula, [address] [place] [address] [id number] [place] [address], [address]. tel:[phone] OFFICE/OUTPA TIENT VISIT, EST [facility], [address], [place], [id number], [place] tel:[phone] [facility] Body mass index (BMI) 45.0-49.9, adultBipolar disorder, current episode mixed, moderateGene ralized Anxiety DisorderOpio id use disorder, moderate, in early remissionAmp hetamine type substance use disorder, moderatePost -traumatic stress disorder, chronicInsom niaFamily history of other mental and behavioral disordersFam vonda history of alcohol abuse and dependenceFa kenan history of other substance abuse and dependence 9 Caterina Finch. [address], [id number] [place], [id number], [place]. tel:[phone] Referring Provider: Josette Diggs, [address] [id number] [place], [address]. tel:[phone] [facility], [address], [place], [id number], [place] tel:[phone] [facility] provider note-Keeley Rogers STYLE ADVISOR-C (chief complaint) Left upper quadrant pain 9 Ken Mina. [address], [id number] [facility], [place], [id number], [place]. tel:[phone] OFFICE/OUTPA TIENT VISIT, EST [facility], [address], [place], [id number], [place] tel:[phone] [facility] follow up (chief complaint) Body mass index (BMI) 45.0-49.9, adultTobacco useLeft upper quadrant painUTI 9 Ayo Friend. [address], [id number] 0, [place], [id number], [place]. tel:[phone] Referring Provider: Phuc Rollins, [address] [id number] [place], [address]. tel:[phone] OFFICE/OUTPA TIENT VISIT, EST [facility], [address], [place], [id number], [place] tel:[phone] [facility] Body mass index (BMI) 45.0-49.9, adultBipolar disorder, current episode mixed, moderateOpio id use disorder, moderate, in early remissionAmp hetamine type substance use disorder, moderatePost -traumatic stress disorder, chronicInsom niaFamily history of other mental and behavioral disordersFam vonda history of alcohol abuse and dependenceFa kenan history of other substance abuse and dependenceGe neralized Anxiety Disorder 9 Caterina Finch. [address], [id number] [place], [id number], [place]. tel:[phone] Referring Provider: Josette Diggs, [address] [id number] [place], [address]. tel:[phone] OFFICE/OUTPA TIENT VISIT, EST [facility], [address], [place], [id number], [place] tel:[phone] [facility] follow up (chief complaint) Body mass index (BMI) 45.0-49.9, adultHeadach eAmenorrhea, unspecifiedD izziness 9 Claudiakaci Friend. [address], [id number] 0[place], [place], [id number], [place]. tel:[phone] Referring Provider: Phuc Rollins, [address] [id number] 0[place], [place], [address]. tel:[phone] OFFICE/OUTPA TIENT VISIT, EST [facility], [address], [place], [id number], [place] tel:[phone] [facility] migraines (chief complaint) Tobacco useBody mass index (BMI) 45.0-49.9, adultHeadach e 9 Claudiakaci Friend. [address], [id number] 0[place], [place], [id number], [place]. tel:[phone] Referring Provider: Phuc Rollins, [address] [id number] [place], [address]. tel:[phone] OFFICE/OUTPA TIENT VISIT, EST [facility], [address], [place], [id number], [place] tel:[phone] [facility] Bipolar disorder, current episode mixed, moderateOpio id use disorder, moderate, in early remissionAmp hetamine type substance use disorder, moderatePost -traumatic stress disorder, chronicInsom niaFamily history of other mental and behavioral disordersFam vonda history of alcohol abuse and dependenceFa kenan history of other substance abuse and dependenceBo dy mass index (BMI) 45.0-49.9, adult Nov- 9 Caterina Finch. [address], [id number] 0[place], [place], [id number], [place]. tel:[phone] Referring Provider: Josette Diggs, [address] [id number] 0[place], [place], [address]. tel:[phone] OFFICE/OUTPA TIENT VISIT, EST [facility], [address], [place], [id number], [place] tel:[phone] [facility] follow up (chief complaint) Body mass index (BMI) 45.0-49.9, adultTobacco useHypothyro idismShortne ss of breathEncoun ter for adult health check-up 9 Ayo Friend. [address], [id number] [place], [id number], [place]. tel:[phone] Referring Provider: Phuc Rollins, [address] [id number] [place], [address]. tel:[phone] OFFICE/OUTPA TIENT VISIT, EST [facility], [address], [place], [id number], [place] tel:[phone] [facility] Bipolar disorder, current episode mixed, moderateOpio id use disorder, moderate, in early remissionAmp hetamine type substance use disorder, moderatePost -traumatic stress disorder, chronicInsom niaFamily history of other mental and behavioral disordersFam vonda history of alcohol abuse and dependenceFa kenan history of other substance abuse and dependence 9 Caterina Finch. [address], [id number] [place], [id number], [place]. tel:[phone] Referring Provider: Josette Diggs, [address] [id number] [place], [address]. tel:[phone] OFFICE/OUTPA TIENT VISIT, EST [facility], [address], [place], [id number], [place] tel:[phone] [facility] follow up (chief complaint) Tobacco useBody mass index (BMI) 45.0-49.9, adultOpioid dependence, in remissionEde maHypothyroi dism 0 11 Ayo Friend. [address], [id number] 0[place], [place], [id number], [place]. tel:[phone] Referring Provider: Phuc Rollins, [address] [id number] [place], [address]. tel:[phone] OFFICE/OUTPA TIENT VISIT, EST [facility], [address], [place], [id number], [place] tel:[phone] [facility] follow up (chief complaint) Body mass index (BMI) 45.0-49.9, adultTobacco useOpioid dependence, in remissionEde ma 5- 9 Ayo Friend. [address], [id number] [place], [id number], [place]. tel:[phone] Referring Provider: Phuc Rollins, [address] [id number] [place], [address]. tel:[phone] OFFICE/OUTPA TIENT VISIT, EST [facility], [address], [place], [id number], [place] tel:[phone] [facility] Edema (chief complaint)Pr ovider Information Mj Doran PA-C (chief complaint) Tobacco useBody mass index (BMI) 45.0-49.9, adultEdemaSh ortness of breath 7-201 9 Espinoza Child. [address], [id number] [place], [id number], [place]. tel:[phone] Referring Provider: Mateusz Doran, [address] [id number] [place], [address]. tel:[phone] [facility], [address], [place], [id number], [place] tel:[phone] [facility] Bipolar disorder, current episode mixed, moderate 1-201 9 Caterina Josette. [address], [id number] [place], [id number], [place]. tel:[phone] Referring Provider: Josette Diggs, [address] [id number] [place], [address]. tel:[phone] [facility], [address], [place], [id number], [place] tel:[phone] [facility] No Information 11 Ayo Friend. [address], [id number] [place], [id number], [place]. tel:[phone] Referring Provider: Phuc Rollins, [address] [id number] [place], [address]. tel:[phone] OFFICE/OUTPA TIENT VISIT, EST [facility], [address], [place], [id number], [place] tel:[phone] [facility] General Check Up (chief complaint) Body mass index (BMI) 45.0-49.9, adultHypothy roidismNeuro pathyEncount er for adult health check-upLumb ago 9 Ayo Friend. [address], [id number] 0, [place], [id number], [place]. tel:[phone] Referring Provider: Phuc Rollins, [address] [id number] [place], [address]. tel:[phone] PSYCH DIAG EVAL W/MED SRVCS [facility], [address], [place], [id number], [place] tel:[phone] [facility] Bipolar disorder, current episode mixed, moderateOpio id dependence, in remissionPos t-traumatic stress disorder, chronicFamil y history of other mental and behavioral disordersFam vonda history of alcohol abuse and dependenceFa kenan history of other substance abuse and dependenceIn somnia 0 9 Caterina Finch. [address], [id number] 0CH, [place], [id number], [place]. tel:[phone] Referring Provider: Josette Diggs, [address] [id number] [place], [address]. tel:[phone] OFFICE/OUTPA TIENT VISIT, EST [facility], [address], [place], [id number], [place] tel:[phone] [facility] Bipolar disorder, current episode mixed, moderateOpio id dependence, in remissionPos t-traumatic stress disorder, chronicBody mass index (BMI) 40.0-44.9, adult 9 Mekhi Newby. [address], [id number] 0, [place], [id number], [place]. tel:[phone] Referring Provider: [employer], [address] [id number] [place], [address]. tel:[phone] OFFICE/OUTPA TIENT VISIT, EST [facility], [address], [place], [id number], [place] tel:[phone] [facility] Respiratory Issues (chief complaint) Body mass index (BMI) 45.0-49.9, adultHypothy roidism, unspecifiedA cute bronchitis Sep-0 6201 8 Ayo Friend. [address], [id number] [place], [id number], [place]. tel:[phone] Referring Provider: Phuc Rollins, [address] [id number] [place], [address]. tel:[phone] OFFICE/OUTPA TIENT VISIT, EST [facility], [address], [place], [id number], [place] tel:[phone] [facility] Bipolar disorder, current episode mixed, moderateOpio id dependence, in remissionPos t-traumatic stress disorder, chronicBody mass index (BMI) 40.0-44.9, adult Aug-0 6-201 8 Mekhi Newby. [address], [id number] 0, [place], [id number], [place]. tel:[phone] Referring Provider: [employer], [address] [id number] 0[place], [place], [address]. tel:[phone] [facility], [address], [place], [id number], [place] tel:[phone] [facility] Encounter for dental exam and cleaning w/o abnormal findings Damion-0 8 Bren Quick. [address] , [id number] [place], [id number], [place]. tel:[phone] Referring Provider: Domonique Connor [address] [id number] [place], [address]. tel:[phone] lting Provider: Domonique Connor [address] [id number] 0, [place], [address]. tel:[phone] [facility], [address], [place], [id number], [place] tel:[phone] [facility] No Information Apr-3 0 8 Ayo Friend. [address], [id number] [place], [id number], [place]. tel:[phone] Referring Provider: Phuc Rollins, [address] [id number] [place], [address]. tel:[phone] OFFICE/OUTPA TIENT VISIT, EST [facility], [address], [place], [id number], [place] tel:[phone] [facility] Bipolar disorder, current episode mixed, moderateOpio id dependence, in remissionPos t-traumatic stress disorder, chronicBody mass index (BMI) 40.0-44.9, adult Apr-2 7-201 8 Mekhi Newby. [address], [id number] 0CH, [place], [id number], [place]. tel:[phone] Referring Provider: [employer]in [employer], [address] [id number] [place], [address]. tel:[phone] OFFICE/OUTPA TIENT VISIT, EST [facility], [address], [place], [id number], [place] tel:[phone] [facility] check symptoms (chief complaint) Body mass index (BMI) 45.0-49.9, adultNausea with vomiting, unspecified Jul-05 01- 8 Ayo Friend. [address], [id number] 0CH, [place], [id number], [place]. tel:[phone] Referring Provider: Phuc Rollins, [address] [id number] 0, [place], [address]. tel:[phone] OFFICE/OUTPA TIENT VISIT, EST [facility], [address], [place], [id number], [place] tel:[phone] [facility] Bipolar disorder, current episode mixed, moderateOpio id dependence, in remissionPos t-traumatic stress disorder, chronicBody mass index (BMI) 40.0-44.9, adult Jun-04 25- 8 Mekhi Newby. [address], [id number] 0[place], [place], [id number], [place]. tel:[phone] Referring Provider: [employer]in [employer], [address] [id number] [place], [address]. tel:[phone] OFFICE/OUTPA TIENT VISIT, EST [facility], [address], [place], [id number], [place] tel:[phone] [facility] Follow up (chief complaint) Body mass index (BMI) 45.0-49.9, adultBurn 8 Ayo Friend. [address], [id number] 0CH, [place], [place], [id number], [place]. tel:[phone] Referring Provider: Phuc Rollins, [address] [id number] 0CH, [place], [address]. tel:[phone] OFFICE/OUTPA TIENT VISIT, EST [facility], [address], [place], [place], [id number], [place] tel:[phone] [facility] follow up (chief complaint) Body mass index (BMI) 40.0-44.9, adultHypothy roidismEleva vida blood-pressu re reading without diagnosis of HTN 10 Ayo Friend. [address], [id number] 0CH, [place], [place], [id number], [place]. tel:[phone] Referring Provider: Phuc Rollins, [address] [id number] 0[place], [place], [address]. tel:[phone] OFFICE/OUTPA TIENT VISIT, EST [facility], [address], [place], [place], [id number], [place] tel:[phone] [facility] check symptoms (chief complaint) Body mass index (BMI) 40.0-44.9, adultAcute pharyngitisH yperlipidemi aHypothyroid ism 10 yAo Friend. [address], [id number] 0[place], [place], [place], [id number], [place]. tel:[phone] Referring Provider: Phuc Rollins, [address] [id number] 0[place], [place], [address]. tel:[phone] OFFICE/OUTPA TIENT VISIT, EST [facility], [address], [place], [place], [id number], [place] tel:[phone] [facility] follow up (chief complaint) Body mass index (BMI) 40.0-44.9, adultChronic tonsillitisN europathy 9 Ayo Friend. [address], [id number] 0CH, [place], [id number], [place]. tel:[phone] Referring Provider: Phuc Rollins, [address] [id number] [place], [address]. tel:[phone] OFFICE/OUTPA TIENT VISIT, EST [facility], [address], [place], [id number], [place] tel:[phone] [facility] Bipolar disorder, current episode mixed, moderateOpio id dependence, in remissionPos t-traumatic stress disorder, chronicBody mass index (BMI) 40.0-44.9, adult 7 Mekhi Newby. [address], [id number] [place], [id number], [place]. tel:[phone] Referring Provider: [employer], [address] [id number] [place], [address]. tel:[phone] OFFICE/OUTPA TIENT VISIT, EST [facility], [address], [place], [id number], [place] tel:[phone] [facility] follow up (chief complaint) Body mass index (BMI) 40.0-44.9, adultAcute frontal sinusitis, unspecifiedS hortness of breathNeurop athy 9 Ayo Friend. [address], [id number] 0CH, [place], [id number], [place]. tel:[phone] OFFICE/OUTPA TIENT VISIT, EST [facility], [address], [place], [id number], [place] tel:[phone] [facility] Bipolar disorder, current episode mixed, moderateOpio id dependence, in remissionPos t-traumatic stress disorder, chronicBody mass index (BMI) 40.0-44.9, adult 7 Mekhi Newby. [address], [id number] [place], [id number], [place]. tel:[phone] OFFICE/OUTPA TIENT VISIT, EST [facility], [address], [place], [id number], [place] tel:[phone] [facility] Bipolar disorder, current episode mixed, moderateOpio id dependence, in remissionPos t-traumatic stress disorder, chronicBody mass index (BMI) 40.0-44.9, adult - 7 Mekhi Newby. [address], [id number] [place], [id number], [place]. tel:[phone] OFFICE/OUTPA TIENT VISIT, EST [facility], [address], [place], [id number], [place] tel:[phone] [facility] check symptoms (chief complaint) Body mass index (BMI) 39.0-39.9, adultHypothy roidismHyper lipidemiaNeu ropathyPerso nal hx of TIA w/o residual deficit 7 Ayo Friend. [address], [id number] [place], [id number], [place]. tel:[phone] OFFICE/OUTPA TIENT VISIT, EST [facility], [address], [place], [id number], [place] tel:[phone] [facility] Bipolar disorder, current episode mixed, moderateOpio id dependence, in remissionPos t-traumatic stress disorder, chronicBody mass index (BMI) 40.0-44.9, adult 7 Mekhi Newby. [address], [id number] [place], [id number], [place]. tel:[phone] Referring Provider: [employer], [address] [id number] [place], [address]. tel:[phone] OFFICE/OUTPA TIENT VISIT, EST [facility], [address] [place], [id number], tel:[phone] [facility] est care (chief complaint) Body mass index (BMI) 38.0-38.9, adultAcute frontal sinusitis, unspecifiedM ixed hyperlipidem ia Oct-0 3-201 7 Ayo Friend. [address], [id number] [place], [id number], [place]. tel:[phone] [facility], [address], [place], [id number], [place] tel:[phone] [facility] Encounter for dental exam and cleaning w/o abnormal findings Sep-2 8201 7 Bren Quick. [address] [id number] [place], [id number], [place]. tel:[phone] [facility], [address], [place], [id number], [place] tel:[phone] [facility] Encounter for dental exam and cleaning w/o abnormal findings Sep-2 7 Larkspuriona Kapo[place]. [address] [id number] [place], [id number], [place]. tel:[phone] Consulting Provider: Loren Mcdonald, [address] [id number] [place], [address]. tel:[phone] OFFICE/OUTPA TIENT VISIT, EST [facility], [address] [place], [id number], [place] tel:[phone] [facility] Bipolar disorder, current episode mixed, moderateOpio id dependence, in remissionPos t-traumatic stress disorder, chronicBody mass index (BMI) 40.0-44.9, adult Sep-2 0-201 7 Mekhi Newby. [address], [id number] [place], [id number], [place]. tel:[phone] Referring Provider: [employer], [address] [id number] 0CH, [place], [address]. tel:[phone] [facility], [address], [place], [id number], [place] tel:[phone] [facility] No Information Sep- 0 7 Mekhi Newby. [address], [id number] 0CH, [place], [id number], [place]. tel:[phone] OFFICE/OUTPA TIENT VISIT, EST [facility], [address], [place], [id number], [place] tel:[phone] [facility] Body mass index (BMI) 40.0-44.9, adultBipolar disorder, current episode mixed, moderateOpio id dependence, in remissionPos t-traumatic stress disorder, chronic Nov- 7 Mekhi Newby. [address], [id number] 0CH, [place], [id number], [place]. tel:[phone] Referring Provider: [place] tabor. tel:[phone] OFFICE/OUTPA TIENT VISIT, EST [facility], [address], [place], [id number], [place] tel:[phone] [facility] Bipolar disorder, current episode mixed, moderateOpio id dependence, in remissionPos t-traumatic stress disorder, chronic Sep-2 8 6 Mekhi Newby. [address], [id number] 0CH, [place], [id number], [place]. tel:[phone] OFFICE/OUTPA TIENT VISIT, EST [facility], [address], [place], [id number], [place] tel:[phone] [facility] Bipolar disorder, current episode mixed, moderateOpio id dependence, in remissionPos t-traumatic stress disorder, chronic Nov- 9 6 Mekhi Newby. [address], [id number] 0CH, [place], [place], [id number], [place]. tel:[phone] OFFICE/OUTPA TIENT VISIT, EST [facility], [address], [place], [place], [id number], [place] tel:[phone] [facility] Bipolar disorder, current episode mixed, moderateOpio id dependence, in remissionPos t-traumatic stress disorder, chronic 6 Mekhi Newby. [address], [id number] 0CH, [place], [place], [id number], [place]. tel:[phone] Referring Provider: [place] tabor. tel:[phone] [facility], [address], [place], [place], [id number], [place] tel:[phone] [facility] No Information 6 Bearelly Manoher. , [place], [place]. OFFICE/OUTPA TIENT VISIT, EST [facility], [address], [place], [place], [id number], [place] tel:[phone] [facility] No Information 6 Bearelly Mano[place]. , [place], [place]. Referring Provider: Jennifer Pavon. OFFICE/OUTPA TIENT VISIT, EST [facility], [address], [place], [place], [id number], [place] tel:[phone] [facility] No Information 6 Librado Rodriguez. . Referring Provider: [place] tabor. tel:[phone] OFFICE/OUTPA TIENT VISIT, EST [facility], [address], [place], [place], [id number], [place] tel:[phone] [facility] No Information 6 Librado Alexander . Referring Provider: [place] tabor. tel:[phone] OFFICE/OUTPA TIENT VISIT, EST [facility], [address], [place], [place], [id number], [place] tel:[phone] [facility] No Information 6 Librado Rodriguez. . Referring Provider: Jennifer Pavon. OFFICE/OUTPA TIENT VISIT, EST [facility], [address], [place], [id number], [place] tel:[phone] [facility] No Information 5 Librado Rodriguez. . Referring Provider: [place] tabor. tel:[phone] OFFICE/OUTPA TIENT VISIT, EST [facility], [address], [place], [id number], [place] tel:[phone] [facility] No Information 5 Librado Rodriguez. . OFFICE/OUTPA TIENT VISIT, EST [facility], [address], [place], [id number], [place] tel:[phone] [facility] No Information 5 Jared [place]. . [facility], [address], [place], [id number], [place] tel:[phone] [facility] No Information 5 Jared Stanislaw. . OFFICE/OUTPA TIENT VISIT, EST [facility], [address], [place], [id number], [place] tel:[phone] [facility] stomach issues (chief complaint)Pr ovider's notes: Karen Oconnor DO (chief complaint) ObesityEsoph ageal reflux Dec- 5 Anastasia Jones. , [place], [place]. OFFICE/OUTPA TIENT VISIT, EST [facility], [address], [place], [id number], [place] tel:[phone] [facility] No Information 5 Jared [place]. . [facility], [address], [place], [id number], [place] tel:[phone] [facility] No Information 5 Jared Stanislaw. . OFFICE/OUTPA TIENT VISIT, EST [facility], [address], [place], [id number], [place] tel:[phone] [facility] No Information Jared Stanislaw. . Referring Provider: [place] tabor. tel:[phone] OFFICE/OUTPA TIENT VISIT, EST [facility], [address], [place], [id number], [place] tel:[phone] [facility] No Information Jared [place]. . Referring Provider: [place] tabor. tel:[phone] OFFICE/OUTPA TIENT VISIT, EST [facility], [address], [place], [id number], [place] tel:[phone] [facility] ER follow up (chief complaint)Pr ovider's notes: Karen Oconnor DO (chief complaint) ObesityEsoph ageal refluxSeizur eHeadache 5 Anastasia Jones. , [place], [place]. [facility], [address], [place], [id number], [place] tel:[phone] [facility] Dental examination 5 Bren Quick. [address] , [id number] [facility] [id number], [place]. tel:[phone] Referring Provider: PSP Screening.C onsulting Provider: Loren Mcdonald, [address] [id number] [facility], [place], [address]. tel:[phone] OFFICE/OUTPA TIENT VISIT, EST [facility], [address], [place], [id number], [place] tel:[phone] [facility] Cough (chief complaint)Pr ovider's notes: Karen Oconnor DO (chief complaint) ObesityBronc hitisTobacco dependence 5 Anastasia Jones. , [place], [place]. OFFICE/OUTPA TIENT VISIT, EST [facility], [address], [place], [id number], [place] tel:[phone] [facility] No Information 5 Jared [place]. . Referring Provider: Stanislaw Coleman. OFFICE/OUTPA TIENT VISIT, EST [facility], [address], [place], [id number], [place] tel:[phone] [facility] follow up on abd pain (chief complaint) Abdominal painEsophage al reflux 5 Ming Monge [place], [place]. OFFICE/OUTPA TIENT VISIT, NEW [facility], [address], [place], [id number], [place] tel:[phone] [facility] establish care (chief complaint)St omach Ache (chief complaint) Abdominal pain 5 [place], [place]. [facility], [address], [place], [id number], [place] tel:[phone] [facility] No Information 5 [place]. Referring Provider: Stanislaw Coleman. OFFICE/OUTPA TIENT VISIT, EST [facility], [address], [place], [place], [id number], [place] tel:[phone] [facility] No Information 5 Jared Dover. . [facility], [address], [place], [id number], [place] tel:[phone] [facility] ADHDBorderli ne personalityA nti social personality disorder 5 Jared [place]. . OFFICE/OUTPA TIENT VISIT, EST [facility], [address], [place], [id number], [place] tel:[phone] [facility] No Information 4 Jared [place]. . [facility], [address], [place], [id number], [place] tel:[phone] [facility] Bipolar affective disorder, depressed, severe degree, specified as with psychotic behaviorPani c disorder w/ agoraphobiaS ocial phobiaObsess zheng compulsive disorderChro marlene PTSDOpiate dependence 4 Jared [place]. . OFFICE/OUTPA TIENT VISIT, EST [facility], [address], [place], [place], [id number], [place] tel:[phone] [facility] No Information 4 Jared [place]. . OFFICE/OUTPA TIENT VISIT, EST [facility], [address], [place], [place], [id number], [place] tel:[phone] [facility] No Information 4 Jared [place]. . OFFICE/OUTPA TIENT VISIT, EST [facility], [address], [place], [place], [id number], [place] tel:[phone] [facility] No Information 4 Luciano Seymour OFFICE/OUTPA TIENT VISIT, NEW [facility], [address], [place], [place], [id number], [place] tel:[phone] [employer] [facility] No Information 4 Luciano Ma. . Family History Family Member Type Diagnosis Age At Onset Sister Problem (finding) Systemic lupus erythema tosus Maternal aunt Problem (finding) malignant neop lasm of bone (Cause Of ) Mother Problem (finding) Meniere's disease Father Problem (finding) malignant neop lasm of pancreas (Cause Of ) Problem (finding) Family history of hyper cholesterolemia Brother Problem (finding) diabetes melli tus in first degree relative Father Problem (finding) stroke Problem (finding) Family history of Arthr itis Mother Problem (finding) Eczema Mother Problem (finding) glaucoma Mother Problem (finding) Minears Brother Problem (finding) manic-depressive state Problem (finding) Family history of Diabe chica mellitus Problem (finding) Family history of hyper tension Father Problem (finding) hypertension Mother Problem (finding) malignant neoplasm of c ervix uteri Nephew Problem (finding) seizure disorder Daughter Problem (finding) Fibromyalgia Sister Problem (finding) manic-depressive state Problem (finding) Family history of multi ple sclerosis Problem (finding) Family history of vario us types Immunizations Vaccine Date Status Comments Flu Vaccine 4 yrs and older administered Source: New Immunization Record Pneumovax 23 administered Note: requested be given in the hip even after educated on the importance of this going into muscle ; Source: New Immunization Record Flu Vaccine 4 yrs and older administered Note: Refused to have done in arm or thigh, stated inportance of vaccines going into muscle but still refused and requested the hip ; Source: New Immunization Record Payers Payer name Insurance type Covered republican ID Authoriza tidarlin(s) [facility] [id number] Medicare [place]Q [place] [id number] [facility] [id number] Medicare [place] [id number] [facility] [id number] Medicare [place]Q [place] [id number] [facility] [id number] Social History Type Description Quantity Date Captured Comments Alcohol Use Details Unknown Caffeine Use Details Unknown Tobacco Use Status Smoking Status No Information Sex Female Sexual Orientation Bisexual Gender Identity Female Chief Complaint And Reason For Visit No Information Reason For Referral Reason For Referral No Information Plan Of Treatment Date Type Action Status Goal Pneumococcal Pre vnar. Due on due Goal Unhealthy drug u se screening. Due on due Goal Pap/HPV testing. Due on due Goal HPV. Due on due Goal Tdap. Due on due Goal Depression scree paul. Due on due Goal Hepatitis C scre ening. Due on due Goal Influenza vaccin e. Due on due Goal HPV, high+low-ri sk. Due on due Goal Td vaccine. Due on 24 due Goal Lipid panel. Due on 024 due Goal Pap/HPV testing. Due on due Goal HPV, high+low-ri sk. Due on due Goal Influenza vaccin e. Due on due Goal Lipid panel. Due on due Goal Depression scree paul. Due on due Goal HPV. Due on due Goal Td vaccine. Due on due Goal Tdap. Due on due Goal Lipid panel. Due on due Goal Pap/HPV testing. Due on due Goal HPV. Due on due Goal Depression scree paul. Due on due Goal Tdap. Due on due Goal Influenza vaccin e. Due on due Goal Td vaccine. Due on due Goal HPV, high+low-ri sk. Due on due Goal Tobacco cessation counseling completed Goal HPV. Due on due Goal Tdap. Due on due Goal HPV, high+low-ri sk. Due on due Goal Influenza vaccin e. Due on due Goal Pap/HPV testing. Due on due Goal Depression scree paul. Due on due Goal Lipid panel. Due on due Goal Td vaccine. Due on due Goal Tobacco cessation counseling completed Goal HPV, high+low-ri sk. Due on due Goal Depression scree paul. Due on due Goal Tdap. Due on due Goal Pap/HPV testing. Due on due Goal HPV. Due on due Goal Td vaccine. Due on due Goal Lipid panel. Due on due Goal Influenza vaccin e. Due on due Goal Tobacco cessation counseling completed Goal Td vaccine. Due on due Goal Depression scree paul. Due on due Goal HPV, high+low-ri sk. Due on due Goal Tdap. Due on due Goal Pap/HPV testing. Due on due Goal Influenza vaccin e. Due on due Goal HPV. Due on due Goal Lipid panel. Due on due Goal Tobacco cessation counseling completed Goal Pap/HPV testing. Due on due Goal Lipid panel. Due on due Goal HPV. Due on due Goal Depression scree paul. Due on due Goal Tdap. Due on due Goal Td vaccine. Due on due Goal Influenza vaccin e. Due on due Goal HPV, high+low-ri sk. Due on due Goal Tobacco cessation counseling completed Goal Pap/HPV testing. Due on due Goal Tdap. Due on due Goal Influenza vaccin e. Due on due Goal HPV. Due on due Goal HPV, high+low-ri sk. Due on due Goal Depression scree paul. Due on due Goal Td vaccine. Due on due Goal Lipid panel. Due on due Goal Tobacco cessation counseling completed Goal Lipid panel. Due on due Goal Depression scree paul. Due on due Goal HPV, high+low-ri sk. Due on due Goal Pap/HPV testing. Due on due Goal HPV. Due on due Goal Td vaccine. Due on due Goal Tdap. Due on due Goal Influenza vaccin e. Due on due Goal Tobacco cessation counseling completed Goal Dietary manageme nt education, guidance, and counseling completed Goal Tdap. Due on due Goal Influenza vaccin e. Due on due Goal Td vaccine. Due on due Goal HPV, high+low-ri sk. Due on due Goal Depression scree paul. Due on due Goal Pap/HPV testing. Due on due Goal HPV. Due on due Goal Lipid panel. Due on due Goal Tobacco cessation counseling completed Goal Depression scree paul. Due on due Goal Pap/HPV testing. Due on due Goal Influenza vaccin e. Due on due Goal Tdap. Due on due Goal Lipid panel. Due on due Goal HPV, high+low-ri sk. Due on due Goal Td vaccine. Due on due Goal HPV. Due on due Goal Tobacco cessation counseling completed Goal Influenza vaccin e. Due on due Goal Lipid panel. Due on due Goal Tdap. Due on due Goal HPV, high+low-ri sk. Due on due Goal Pap/HPV testing. Due on due Goal HPV. Due on due Goal Td vaccine. Due on due Goal Depression scree paul. Due on due Goal Tobacco cessation counseling completed Goal HPV, high+low-ri sk. Due on due Goal Lipid panel. Due on due Goal Influenza vaccin e. Due on due Goal Depression scree paul. Due on due Goal Pap/HPV testing. Due on due Goal Td vaccine. Due on due Goal HPV. Due on due Goal Tdap. Due on due Goal Tobacco cessation counseling completed Goal Tobacco cessation counseling completed Goal Influenza vaccin e. Due on due Goal Td vaccine. Due on due Goal HPV, high+low-ri sk. Due on due Goal Pap/HPV testing. Due on due Goal Depression scree paul. Due on due Goal Tdap. Due on due Goal HPV. Due on due Goal Lipid panel. Due on due Goal Tdap. Due on due Goal Lipid panel. Due on due Goal HPV, high+low-ri sk. Due on due Goal Depression scree paul. Due on due Goal Td vaccine. Due on due Goal Influenza vaccin e. Due on due Goal HPV. Due on due Goal Pap/HPV testing. Due on due Goal Depression scree paul. Due on due Goal HPV, high+low-ri sk. Due on due Goal Influenza vaccin e. Due on due Goal Lipid panel. Due on due Goal HPV. Due on due Goal Tdap. Due on due Goal Pap/HPV testing. Due on due Goal Td vaccine. Due on due Goal Tdap. Due on due Goal Lipid panel. Due on due Goal HPV. Due on due Goal Pap/HPV testing. Due on due Goal Depression scree paul. Due on due Goal HPV, high+low-ri sk. Due on due Goal Influenza vaccin e. Due on due Goal Td vaccine. Due on due Goal Tobacco cessation counseling completed Goal HPV. Due on due Goal Pap/HPV testing. Due on due Goal Depression scree paul. Due on due Goal HPV, high+low-ri sk. Due on due Goal Tdap. Due on due Goal Lipid panel. Due on due Goal Influenza vaccin e. Due on due Goal Td vaccine. Due on due Goal Tobacco cessation counseling completed Goal HPV, high+low-ri sk. Due on due Goal Pap/HPV testing. Due on due Goal Depression scree paul. Due on due Goal HPV. Due on due Goal Td vaccine. Due on due Goal Influenza vaccin e. Due on due Goal Tdap. Due on due Goal Lipid panel. Due on due Goal Tobacco cessation counseling completed Goal Influenza vaccin e. Due on due Goal Pap/HPV testing. Due on due Goal Depression scree paul. Due on due Goal Lipid panel. Due on due Goal Td vaccine. Due on due Goal Tdap. Due on due Goal HPV. Due on due Goal HPV, high+low-ri sk. Due on due Goal Tobacco cessation counseling completed Goal HPV. Due on due Goal Td vaccine. Due on due Goal Lipid panel. Due on due Goal Tdap. Due on due Goal Depression scree paul. Due on due Goal HPV, high+low-ri sk. Due on due Goal Pap/HPV testing. Due on due Goal Influenza vaccin e. Due on due Goal Tobacco cessation counseling completed Goal Lifestyle educat ion regarding diet completed Goal HPV, high+low-ri sk. Due on due Goal Pap/HPV testing. Due on due Goal Influenza vaccin e. Due on due Goal HPV. Due on due Goal Tdap. Due on due Goal Lipid panel. Due on due Goal Depression scree paul. Due on due Goal Td vaccine. Due on due Goal Depression scree paul. Due on due Goal HPV. Due on due Goal Td vaccine. Due on due Goal Lipid panel. Due on due Goal Tdap. Due on due Goal HPV, high+low-ri sk. Due on due Goal Pap/HPV testing. Due on due Goal Influenza vaccin e. Due on due Goal Tobacco cessation counseling completed Goal HPV, high+low-ri sk. Due on due Goal Lipid panel. Due on due Goal HPV. Due on due Goal Td vaccine. Due on due Goal Tdap. Due on due Goal Depression scree paul. Due on due Goal Influenza vaccin e. Due on due Goal Pap/HPV testing. Due on due Goal Tobacco cessation counseling completed Goal Dietary manageme nt education, guidance, and counseling completed Goal Depression scree paul. Due on due Goal Influenza vaccin e. Due on due Goal HPV. Due on due Goal Pap/HPV testing. Due on due Goal Td vaccine. Due on due Goal HPV, high+low-ri sk. Due on due Goal Tdap. Due on due Goal Lipid panel. Due on due Goal Influenza vaccin e. Due on due Goal Depression scree paul. Due on due Goal HPV, high+low-ri sk. Due on due Goal Pap/HPV testing. Due on due Goal Tdap. Due on due Goal HPV. Due on due Goal Td vaccine. Due on due Goal Lipid panel. Due on due Goal Tobacco cessation counseling completed Goal Pap/HPV testing. Due on due Goal Td vaccine. Due on due Goal Lipid panel. Due on due Goal Tdap. Due on due Goal HPV. Due on due Goal HPV, high+low-ri sk. Due on due Goal Influenza vaccin e. Due on due Goal Depression scree paul. Due on due Goal Lipid panel. Due on 025 due Goal Depression scree paul. Due on due Goal Tdap. Due on due Goal HPV, high+low-ri sk. Due on due Goal Td vaccine. Due on due Goal HPV. Due on due Goal Pap/HPV testing. Due on due Goal Influenza vaccin e. Due on due Goal Tobacco cessation counseling completed Goal Influenza vaccin e. Due on due Goal Td vaccine. Due on due Goal HPV, high+low-ri sk. Due on due Goal Depression scree paul. Due on due Goal Tdap. Due on due Goal Pap/HPV testing. Due on due Goal Tdap. Due on due Goal HPV, high+low-ri sk. Due on due Goal Td vaccine. Due on due Goal Influenza vaccin e. Due on due Goal Pap/HPV testing. Due on due Goal Depression scree paul. Due on due Goal Tobacco cessation counseling completed Goal Dietary manageme nt education, guidance, and counseling completed Goal Pap/HPV testing. Due on due Goal Depression scree paul. Due on due Goal Influenza vaccin e. Due on due Goal Tdap. Due on due Goal Td vaccine. Due on due Goal HPV, high+low-ri sk. Due on due Goal Tobacco cessation counseling completed Goal Lifestyle educat ion regarding diet completed Goal Pap/HPV testing. Due on due Goal HPV, high+low-ri sk. Due on due Goal Depression scree paul. Due on due Goal Td vaccine. Due on due Goal Influenza vaccin e. Due on due Goal Tdap. Due on due Goal Tobacco cessation counseling completed Goal Pap/HPV testing. Due on due Goal Depression scree paul. Due on due Goal Tdap. Due on due Goal Influenza vaccin e. Due on due Goal HPV, high+low-ri sk. Due on due Goal Td vaccine. Due on due Goal Tobacco cessation counseling completed Goal Lifestyle educat ion regarding diet completed Goal Td vaccine. Due on due Goal Influenza vaccin e. Due on due Goal Tdap. Due on due Goal HPV, high+low-ri sk. Due on due Goal Depression scree paul. Due on due Goal Pap/HPV testing. Due on due Goal Tdap. Due on due Goal Td vaccine. Due on due Goal Influenza vaccin e. Due on due Goal Pap/HPV testing. Due on due Goal Depression scree paul. Due on due Goal HPV, high+low-ri sk. Due on due Goal Tobacco cessation counseling completed Goal Dietary manageme nt education, guidance, and counseling completed Goal Tdap. Due on due Goal HPV, high+low-ri sk. Due on due Goal Influenza vaccin e. Due on due Goal Pap/HPV testing. Due on due Goal Td vaccine. Due on due Goal Depression scree paul. Due on due Goal Tobacco cessation counseling completed Goal Lifestyle educat ion regarding diet completed Goal Depression scree paul. Due on due Goal Td vaccine. Due on due Goal Tdap. Due on due Goal Pap/HPV testing. Due on due Goal Influenza vaccin e. Due on due Goal HPV, high+low-ri sk. Due on due Goal Tobacco cessation counseling completed Goal Dietary manageme nt education, guidance, and counseling completed Goal Tdap. Due on due Goal Influenza vaccin e. Due on due Goal Depression scree paul. Due on due Goal Pap/HPV testing. Due on due Goal Td vaccine. Due on due Goal HPV, high+low-ri sk. Due on due Goal Tobacco cessation counseling completed Goal Td vaccine. Due on 19 due Goal Depression scree paul. Due on due Goal Tdap. Due on due Goal HPV, high+low-ri sk. Due on due Goal Influenza vaccin e. Due on due Goal Pap/HPV testing. Due on due Goal Tobacco cessation counseling completed Goal Lifestyle educat ion regarding diet completed Goal Td vaccine. Due on due Goal Tdap. Due on due Goal Depression scree paul. Due on due Goal Pap/HPV testing. Due on due Goal Influenza vaccin e. Due on due Goal HPV, high+low-ri sk. Due on due Goal Dietary manageme nt education, guidance, and counseling completed Goal Tobacco cessation counseling completed Goal Influenza vaccin e. Due on due Goal Pap/HPV testing. Due on due Goal Td vaccine. Due on 19 due Goal Tdap. Due on due Goal Depression scree paul. Due on due Goal Diabetes screeni ng. Due on due Goal HPV, high+low-ri sk. Due on due Goal Pap/HPV testing. Due on due Goal Tdap. Due on due Goal Influenza vaccin e. Due on due Goal HPV, high+low-ri sk. Due on due Goal Diabetes screeni ng. Due on due Goal Td vaccine. Due on due Goal Depression scree paul. Due on due Goal Tobacco cessation counseling completed Goal Dietary manageme nt education, guidance, and counseling completed Goal Diabetes screeni ng. Due on due Goal Depression scree paul. Due on due Goal Td vaccine. Due on due Goal Pap/HPV testing. Due on due Goal Influenza vaccin e. Due on due Goal HPV, high+low-ri sk. Due on due Goal Tdap. Due on due Goal Tobacco cessation counseling completed Goal Dietary manageme nt education, guidance, and counseling completed Goal Influenza vaccin e. Due on due Goal Tdap. Due on due Goal HPV, high+low-ri sk. Due on due Goal Td vaccine. Due on due Goal Pap/HPV testing. Due on due Goal Diabetes screeni ng. Due on due Goal Depression scree paul. Due on due Goal Tobacco cessation counseling completed Goal Td vaccine. Due on due Goal Influenza vaccin e. Due on due Goal Pap/HPV testing. Due on due Goal Tdap. Due on due Goal HPV, high+low-ri sk. Due on due Goal Diabetes screeni ng. Due on due Goal Depression scree paul. Due on due Goal Pneumococcal vaccine due Goal Depression scree paul. Due on due Goal Tdap. Due on due Goal Influenza vaccin e. Due on due Goal HPV, high+low-ri sk. Due on due Goal Pap/HPV testing. Due on due Goal Diabetes screeni ng. Due on due Goal Td vaccine. Due on 19 due Goal Tobacco cessation counseling completed Goal Tdap. Due on due Goal Td vaccine. Due on 19 due Goal Pap/HPV testing. Due on due Goal Diabetes screeni ng. Due on due Goal Influenza vaccin e. Due on due Goal Depression scree paul. Due on due Goal Depression scree paul. Due on due Goal Td vaccine. Due on 19 due Goal Diabetes screeni ng. Due on due Goal Influenza vaccin e. Due on due Goal Pap/HPV testing. Due on due Goal Tdap. Due on due Goal Influenza vaccin e. Due on due Goal Td vaccine. Due on 18 due Goal Tdap. Due on due Goal Depression scree paul. Due on due Goal Pap/HPV testing. Due on due Goal Diabetes screeni ng. Due on due Goal Tdap. Due on due Goal Pap/HPV testing. Due on due Goal Td vaccine. Due on 18 due Goal Diabetes screeni ng. Due on due Goal Depression scree paul. Due on due Goal Influenza vaccin e. Due on due Goal Tobacco cessation counseling completed Goal Depression scree paul. Due on due Goal Influenza vaccin e. Due on due Goal Tdap. Due on due Goal Pap/HPV testing. Due on due Goal Diabetes screeni ng. Due on due Goal Td vaccine. Due on 18 due Goal Influenza vaccin e. Due on due Goal Depression scree paul. Due on due Goal Diabetes screeni ng. Due on due Goal Tdap. Due on due Goal Td vaccine. Due on 18 due Goal Pap/HPV testing. Due on due Goal Dietary manageme nt education, guidance, and counseling completed Goal Influenza vaccin e. Due on due Goal Tdap. Due on due Goal Td vaccine. Due on 18 due Goal Pap/HPV testing. Due on due Goal Diabetes screeni ng. Due on due Goal Depression scree paul. Due on due Goal Pap/HPV testing. Due on due Goal Tdap. Due on due Goal Diabetes screeni ng. Due on due Goal Td vaccine. Due on 18 due Goal Depression scree paul. Due on due Goal Influenza vaccin e. Due on due Goal Td vaccine. Due on 18 due Goal Pap/HPV testing. Due on due Goal Diabetes screeni ng. Due on due Goal Tdap. Due on due Goal Depression scree paul. Due on due Goal Influenza vaccin e. Due on due Goal Dietary manageme nt education, guidance, and counseling completed Goal Tdap. Due on due Goal Depression scree paul. Due on due Goal Td vaccine. Due on 18 due Goal Influenza vaccin e. Due on due Goal Diabetes screeni ng. Due on due Goal Pap/HPV testing. Due on due Goal Dietary manageme nt education, guidance, and counseling completed Goal Influenza vaccin e. Due on due Goal Tdap. Due on due Goal Td vaccine. Due on 17 due Goal Depression scree paul. Due on due Goal Pap/HPV testing. Due on due Goal Diabetes screeni ng. Due on due Goal Dietary manageme nt education, guidance, and counseling completed Goal Diabetes screeni ng. Due on due Goal Tdap. Due on due Goal Influenza vaccin e. Due on due Goal Td vaccine. Due on due Goal Tdap. Due on due Goal Td vaccine. Due on due Goal Influenza vaccin e. Due on due Goal Diabetes screeni ng. Due on due Goal Dietary manageme nt education, guidance, and counseling completed Goal Diabetes screeni ng. Due on due Goal Td vaccine. Due on due Goal Influenza vaccin e. Due on due Goal Tdap. Due on due Goal Td vaccine. Due on due Goal Tdap. Due on due Goal Influenza vaccin e. Due on due Goal Diabetes screeni ng. Due on due Goal Td vaccine. Due on due Goal Tdap. Due on due Goal Influenza vaccin e. Due on due Goal Diabetes screeni ng. Due on due Goal Dietary manageme nt education, guidance, and counseling completed Goal Td vaccine. Due on due Goal Tdap. Due on due Goal Diabetes screeni ng. Due on due Goal Influenza vaccin e. Due on due Goal Tobacco cessation counseling completed Goal Tobacco cessation counseling completed Goal Td vaccine. Due on 17 due Goal Diabetes screeni ng. Due on due Goal Tdap. Due on due Goal Influenza vaccin e. Due on due Goal Dietary manageme nt education, guidance, and counseling completed Goal Tobacco cessation counseling completed Goal Lifestyle educat ion regarding diet completed Goal Dietary manageme nt education, guidance, and counseling completed Goal Lifestyle educat ion regarding diet completed Goal Dietary manageme nt education, guidance, and counseling completed Referral Referred To: Anmol Ordered: Referrals: Neurology. Anmol. Evaluate and treat ordered Referral Ordered: Referrals: Pain Management. Evaluate and treat Appointment date/timeframe: 10/14/2019 ordered Referral Ordered: Referrals: Gastroenterology. Location: [facility]. Evaluate and treat Appointment date/timeframe: 03/12/2019 ordered Patient Education Stopping Smoki ng: After Your Visit completed Future Order: Lab Order SARS-CoV -2 RNA (COVID-19), QUALITATIVE NAAT ([id number]), Ordered on: Ordered Future Order: Radiology Order X- RAY EXAM OF ANKLE Left ankle ([id number]), Body Site: ankle, Added on: New Future Order: Lab Order Amylase ([id number]), Added on: New Future Order: Lab Order Lipase ( [id number]), Added on: New Future Order: Lab Order CBC w/di ff ([id number]), Added on: New Future Order: Lab Order CMP ([id number]), Added on: New History Of Present Illness Encounter Date Complaint History Of Prese nt Illness f/u for medication management Respiratory issues presents toda y due to having cough, congestion, shortness of breath, and headache, states started Monday. Has not had COVID testing Provider Note- Arnoldo Schumacher ue to recent COVID-19 pandemic, and the need for social distancing, this is a [employer] [facility] telehealth appointment. The patient presents for an acute visit. The patient reports for the past 4 days her chest has been hurting, she's had a cough, states she feels like she has pneumonia. The patient denies a fever. She reports her chest hurts, and she is coughing up yellow to green mucus. She does report a headache and sinus pressure. The patient denies nausea, vomiting, diarrhea, constipation. She reports her left ear did fill for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 39.0-39.9, adult Giving encouragement to exercise Related to Body mass index (BMI) 38.0-38.9, adult Dietary management e ducation, guidance, and counseling Related to Body mass index (BMI) 38.0-38.9, adult Giving encouragement to exercise Related to Body mass index (BMI) 40.0-44.9, adult Lifestyle education regarding di et Related to Body mass index (BMI) 40.0-44.9, adult stop zantac. take om eprazole 40mg daily. your script was sent to [facility] will request GI consult. decrease spicy and greesy food. Related to Esophageal reflux Eat smaller meals, n o eating three hours prior to bedtime Related to Esophageal reflux Elevate head of bed prior to sle ep Related to Esophageal reflux Giving encouragement to exercise Related to Obesity, unspecified Dietary management e ducation, guidance, and counseling Related to Obesity, unspecified Avoid provocative fo ods: citrus, alcohol, coffee, chocolate, mints Related to Esophageal reflux take zantac as directed Related to Esophageal reflux weight loss exercise. Related to Obesity For now continue wit h tegretol as directed. Related to Seizure take motrin as directed. Related to Headache Lifestyle education regarding di et Related to Obesity, unspecified Giving encouragement to exercise Related to Obesity, unspecified take batrim twice da vonda for 10 days until gone. Take mucinex 2 times daily for cough. Take medrol dose samira as directed for 6 days. Take ventolin inhaler as directed. tylenol for ache pain and fever. stay cool. to ER if worsen. F/u in 1 week. stop smoking Related to Bronchitis Stop smoking. Related to Tobac co dependence Dietary management e ducation, guidance, and counseling Related to Overweight or Obesity Giving encouragement to exercise Related to Overweight or Obesity Continue Protonix 40 mg QD and will add Zantac 300mg QD. F/U as directed. Related to Esophageal reflux With a normal US, we will order a HIDA scan to R/O gall bladder dyskenesis. Patient is concerned about pancreatitis. Will get labs today and call results when avaliable. F/U 2 days after the HIDA scan OR sooner if condition worsens. Related to Abdominal pain Most likely related to gall bladder dysfunction vs. stones, will get medical records and a copy of the US scheduled for tomorrow. Will probably sen for surgical referral for formal evaluation and treatment. Will F/U after this condition is fixed. Related to Abdominal pain Assessments Type Assessment Date No Information Patient Care Teams Name Effective Dates (start - stop) Status Members No Information
[2024-05-15 11:47] VITALS: BP 140/78; BMI 42.9
[2025-03-05 10:12] VITALS: BP 112/76; PULSE 88; RESP 16; TEMP 36.4; O2SAT 98
--- NOTE | 2025-03-05 10:17 | ECG_ITS ---
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 Measurements Intervals [place] Rate: 80 P: 44 VA: 160 QRS: 17 QRSD: 86 T: 39 QT: 369 QTc: 426 Interpretive Statements SINUS RHYTHM WITH SINUS ARRHYTHMIA LOW QRS VOLTAGE IN PRECORDIAL LEADS [QRS DEFLECTION < 1.0 mV IN CHEST LEADS] Compared to EKG on 04/29/2023 at 4:54 PM, There is no significant change Electronically Signed On 03-05-2025 20:06:09 MANAGER CONCRETE by Sebastien Jha M.D. [email or web address]
--- NOTE | 2025-03-05 10:33 | ED_ITS ---
HPI - Recheck/Abnormal Lab/Rx 2 General: Chief Complaint: Recheck/Abnormal Lab/Rx Stated Complaint: Dr Talely Abnormal Labs Time Seen by Provider: 03/05/25 10:16 History of Present Illness: 44-year-old female directed to emergency room by her rn care manager after laboratory test done yesterday show potassium of 2.9 she denies any muscle cramping aches or pain she is not on any diuretics or potassium supplement. Related Data Home Medications ?Medication ?Instructions ?Recorded ?Confirmed celecoxib 100 mg capsule 100 mg PO BID 03/05/2503/05 doxepin 50 mg capsule 50 mg PO BEDTIME 03/05/25 mupirocin 2 % topical ointment See Rx Instructions .[place] .COMPLEX 03/05/25 03/05/25 pantoprazole 40 mg tablet,delayed 40 mg PO QAM 5 03/05/25 release prazosin 5 mg capsule 5 mg PO BEDTIME 03/05/2504/17 tirzepatide 15 mg/0.5 mL 0.5 mg SUBCUT Q7D 03/05/25 1 05/05/24 subcutaneous pen injector (Teresa) Previous Rx's ?Medication ?Instructions ?Recorded aripiprazole 400 mg intramuscular 400 mg IM Q28D #1 ea 07/16/24 suspension,extended release (Abilify Maintena) benztropine 1 mg tablet 1 mg PO BID 30 days #60 tabs 07/16/24 bupropion HCl 150 mg 24 hr tablet, 150 mg PO DAILY 30 days #30 tabs 07/16/24 extended release venlafaxine 150 mg 300 mg (2 x 150 mg) PO DAILY 30 07/16/24 capsule,extended release 24 hr days #60 caps aripiprazole 30 mg tablet (Abilify) 30 mg PO DAILY #30 tabs 10/10/24 levothyroxine 137 mcg capsule 137 mcg PO DAILY 90 days #90 caps 10/23/24 vitamins no.121-iron 28 1 tab PO DAILY #30 ta bs 11/05/24 mg-folic acid 800 mcg tablet mometasone-formoterol HFA 100 2 inh inhalation BID #13 grams 11/16/24 mcg-5 mcg/actuation aerosol inhaler (Dulera) albuterol sulfate 90 mcg/actuation 2 puff inhalation Q 6H PRN 12/02/24 aerosol inhaler (Ventolin HFA) shortness of breath or wheezing #8.5 grams sumatriptan succinate 100 mg See Rx Instructions PO .C OMPLEX 01/29/25 tablet (Imitrex) #10 tabs buprenorphine 8 mg-naloxone 2 mg 2.5 film sublingual D AILY #75 ea 01/31/25 sublingual film (Suboxone) buspirone 10 mg tablet 10 mg PO TID #90 tabs valbenazine 40 mg capsule 40 mg PO DAILY #30 caps 01/22 07/16 (Ingrezza) doxycycline monohydrate 100 mg 100 mg PO Q12H 10 days #20 caps 03/04/25 capsule Allergies Allergy/AdvReac Type Severity Reaction Status Date / Time acetaminophen (From Tylenol) Allergy Severe facial Verified 03/04/25 10:52 swelling lisinopril Allergy Severe facial Verified 03/04/25 10:52 swelling red dye Allergy Intermediate ADR-Irritab Verified 03/04/25 10:52 le meperidine (From Demerol) Allergy Unknown Unknown Verified 03/04/25 10:52 NSAIDS (Non-Steroidal Allergy Unknown Verified 03/04/25 10:52 Anti-Inflamma risperidone Allergy Unknown Verified 03/04/25 10:52 Review of Systems 2 Const: Denies: fever(s) or chills Card: Denies: chest pain Resp: Denies: dyspnea GI: Denies: abdominal pain : Denies: dysuria, urinary frequency or urinary urgency Musc: Denies: neck pain or back pain Skin/Breast: Denies: rash PFSH ED 2 PFSH: Medical History History of heroin abuse Anemia Chronic shoulder pain DJD of AC (acromioclavicular) joint Injury of right upper extremity, sequela Injury of left hand, initial encounter Vitamin deficiency Dry powder inhaler not indicated Sleep difficulties Environmental and seasonal allergies Drug-induced xerostomia Dry mouth Multiple joint pain Hypothyroidism due to [place] thyroiditis Metabolic syndrome Obesity Iron deficiency anemia, unspecified iron deficiency anemia type Drug-induced extrapyramidal movement disorder Fracture of fibula, left, closed Borderline personality disorder Psychiatric care PTSD (post-traumatic stress disorder) Bipolar 1 disorder History of gallbladder disease Abdominal pain Type 2 diabetes mellitus without complication, without long-term current use of insulin Depression Anxiety Hypertension Hypercholesteremia Hidradenitis suppurativa Neuropathy Asthma Surgical History History of tonsillectomy History of surgery on lower extremity Family History Grandmother No problems noted. Grandfather Cancer Maternal-colon Father Cancer, Onset Age: 49 pancreatic Family/Other Cancer Maternal aunt-breast and bone Other Bleeding disorder Dementia Diabetes Hyperlipidemia Hypertension Lung disease Stroke Denies family history of CAD (coronary artery disease) Clotting disorder Psychiatric illness Chronic kidney disease (CKD) Anesthesia complication Social History Smoking and tobacco/nicotine status: current every day tobacco/nicotine user cigarettes Packs smoked per day: 1 Years cigarettes smoked: 26 Quit status (tobacco/nicotine): considering quitting Second hand smoke exposure: Yes Alcohol intake: former Former alcohol use details: 04.26.2013 Substance/Drug Use: former Date of last use: 02.13.24 Adopted: No Caregiver/support person: No Lives independently: Yes Household members: spouse and family Marital status: Marital status details: 10.13.23 Number of children: 2 Number of grandchildren: 0 Highest education level completed: GED or Equivalent Current occupational status: disabled Pets and animals: Yes Pets & animals: cat(s) and dog(s) Leisure activites: music and other Leisure activities details: win painting, journaling Sexually active: Yes Do you think of yourself as: Straight/Heterosexual Current gender identity: Female Rocio/Sabianist: Rastafari Special rocio needs: No Agree to transfusion: Yes Female Reproductive History: Para: 3 Spontaneous abortions: No Physical Exam 2 Const: COMMON NORMALS: no acute distress GENERAL APPEARANCE: cooperative and comfortable ORIENTATION/CONSCIOUSNESS: Yes awake, Yes oriented to person, Yes oriented to place and Yes oriented to time HENMT: COMMON NORMALS: normocephalic, atraumatic and hearing grossly normal bilaterally HEAD & SCALP: normocephalic and atraumatic Resp: COMMON NORMALS: normal respiratory effort, No retractions, No use of accessory muscles and clear to auscultation bilaterally AUSCULTATION: clear to auscultation bilaterally Cardio: COMMON NORMALS: regular rate, regular rhythm and No murmurs present (Cardio) RATE: regular rate RHYTHM: regular rhythm GI: COMMON NORMALS: Soft to palpation and No hepatosplenomegaly present A USCULTATION: Yes normoactive bowel sounds PALPATION: Yes Soft to palpation, No Tenderness to palpation present (GI), No Guarding due to palpation present (GI) and Yes No hepatosplenomegaly present Extremity: COMMON NORMALS: normal to inspection, capillary refill normal, no clubbing, cyanosis or edema, no calf tenderness and no pedal edema Neuro: SENSORIUM/ORIENTATION: Yes oriented to person, Yes oriented to place and Yes oriented to time Skin: COMMON NORMALS: no rashes or lesions noted GENERAL SKIN EXAM: no rashes or lesions noted Course 2 Vital Signs: Vital signs: Vital Signs Temperature 97.5 F L 03/05/25 10:12 Pulse Rate 88 03/05/25 10:12 Respiratory Rate 16 03/05/25 10:12 Blood Pressure 112/76 03/05/25 10:12 Pulse Oximetry 98 03/05/25 10:12 Oxygen Delivery Me thod Room Air 03/05/25 10:12 MDM - Recheck/Abnormal Lab/Rx Medical Decision Making Potassium at 2.8 patient essentially symptomatic magnesium normal EKG does not show any significant abnormalities patient was given 40 of p.o. potassium supplement or liquid. Will discharge home with 20 mill equivalents twice daily follow-up early next week for repeat potassium with primary care return for further problems. Medical Records I reviewed the patient's medical records. Lab Data I reviewed the patient's lab results. 03/05/25 10:59 Laboratory Results Sodium 140 mmol/L (136-145) 03/05/25 10:59 Potassium 2.8 mmol/L (3.5-5.1) L* 03/05/25 10:59 Chloride 100 mmol/L (98-107) 03/05/25 10:59 Carbon Dioxide 26 mmol/L (22-29) 03/05/25 10:59 Anion Gap 16.8 (5-19) 03/05/25 10:59 BUN 3 mg/dL (6-20) L 03/05/25 10:59 Creatinine 0.6 mg/dL (0.5-0.9) 03/05/25 10:59 GFR Calculation 109.6 mL/min (90-130) 03/05/25 10:59 Glucose 53 mg/dL (65-115) L 03/05/25 10:59 Calculated Osmolality 284 mOsm/kg (285-295) L 03/05/25 10:59 Calcium 8.7 mg/dL (8.5-10.5) 03/05/25 10:59 Magnesium 1.9 mg/dL (1.7-2.3) 03/05/25 10:59 No radiology studies performed this visit EKG Data EKG 1: I personally reviewed and interpreted this EKG as follows: Interpretation: EKG 03/05/2025 10:28 AM sinus arrhythmia. Rate of 80 KS interval 160 QTc [address] changes noted. No ST elevation or T wave inversion. Compared to the EKG 04/29/2023 no significant changes. Discharge Plan Discharge Patient Disposition: Home Clinical Impression: Hypokalemia Condition: Stable Prescriptions: New potassium chloride [K-Tab] 20 mEq tablet extended release 20 meq PO BID Qty: 20 0RF No Action Abilify Maintena 400 mg suspension,extended rel recon 400 mg IM Q28D Qty: 1 11RF venlafaxine 150 mg capsule,extended release 24hr 300 mg PO DAILY 30 Days Qty: 60 11RF bupropion HCl 150 mg tablet extended release 24 hr 150 mg PO DAILY 30 Days Qty: 30 11RF benztropine 1 mg tablet 1 mg PO BID 30 Days Qty: 60 11RF aripiprazole [Abilify] 30 mg tablet 30 mg PO DAILY Qty: 30 11RF PNV no.339-xpke-qzgee acid 28 mg iron- 800 mcg tablet 1 tab PO DAILY Qty: 30 3RF Dulera 100-5 mcg/actuation HFA aerosol inhaler 2 inh inhalation BID Qty: 13 5RF buprenorphine-naloxone [Suboxone] 8-2 mg film 2.5 film sublingual DAILY Qty: 75 2RF buspirone 10 mg tablet 10 mg PO TID Qty: 90 11RF sumatriptan succinate [Imitrex] 100 mg tablet See Rx Instructions PO .COMPLEX Qty: 10 3RF Rx Instructions: Take 1 tablet at onset of headache; if no relief, may repeat 1 tablet after at least 2 hrs; max = 2 tablets/24 hrs doxycycline monohydrate 100 mg capsule 100 mg PO Q12H 10 Days Qty: 20 0RF levothyroxine 137 mcg capsule 137 mcg PO DAILY 90 Days Qty: 90 1RF albuterol sulfate [Ventolin HFA] 90 mcg/actuation HFA aerosol inhaler 2 puff inhalation Q6H PRN (Reason: shortness of breath or wheezing) Qty: 8.5 5RF Ingrezza 40 mg capsule 40 mg PO DAILY Qty: 30 2RF mupirocin 2 % ointment See Rx Instructions .ROUTE .COMPLEX Rx Instructions: Apply topically to open draining areas under arms and in groin as needed until healed. doxepin 50 mg capsule 50 mg PO BEDTIME prazosin 5 mg capsule 5 mg PO BEDTIME pantoprazole 40 mg tablet,delayed release (DR/EC) 40 mg PO QAM celecoxib 100 mg capsule 100 mg PO BID Mounjaro 15 mg/0.5 mL pen injector 0.5 mg SUBCUT Q7D Rx Instructions: Mondays Discharge Orders: Discharge ED (Routine); Ordered 03/05/25 Ordered By: Tobias Dixon Referrals: GLORIA Mclaughlin, MANAGER [employer] [Primary Care Provider, Family Practice] Patient Instructions: Opioid Safety, Pain Management, Patient Portal & Kayla Instructions Print Language: Nepali Coding Level of Care Code ED Tunnel Form Placing Supervisor for Marimar Nicholas
--- OUTSIDE RECORDS SUMMARY | 2025-03-05 10:42 | XMS_ITS | Clinical Summary ---
Author Organization [facility] Address [address] [place] [address] Phone Care Team Providers Care County Engineer Name Role Phone Unavailable Primary Care Provider Unavailabl e Allergies Active Allergy Reactions Criticality Noted Date Comments Acetaminophen Swelling Medium 02/09/2021 Lisinopril Hives High 02/09/2021 Meperidine Delirium Medium 02/09/2021 Nsaids (Non-Steroidal Anti-I nflammatory Drug) Swelling Medium 02/09/2021 Medications pantoprazole (PROTONIX) [address] for susp in Packet 40 mg daily. Active cholecalcifero l, Vitamin D3, (VITAMIN D3) 25 mcg (1,000 unit) Capsule Take by mouth daily. Active gabapentin (NEURONTIN) 400 mg capsule Take 600 mg by mouth 3 times daily. Active aripiprazole (ABILIFY IM) Inject 400 mg by intramuscular injection every 30 days. Active busPIRone (BUSPAR) 15 mg Tablet Take 15 mg by mouth. Active losartan (COZAAR) 25 mg tablet Take 25 mg by mouth daily. Active FLUoxetine (PROzac) 20 mg capsule Take 20 mg by mouth daily. Active furosemide (LASIX) 20 mg tablet Take 20 mg by mouth daily. Active hydroCHLOROthi azide 25 mg tablet Take 25 mg by mouth daily. Active ARIPiprazole (ABILIFY) 30 mg tablet Take 30 mg by mouth daily. Active sulfamethoxazo le-trimethopri m (BACTRIM DS) 800-160 mg tablet Take 1 Tablet by mouth 2 times daily. Active predniSONE (DELTASONE) 20 mg tablet Take 40 mg by mouth daily. Active venlafaxine (EFFEXOR XR) 150 mg Extended Release 24 hour capsule Take 150 mg by mouth daily. Active Active Problems Problem Noted Date Diagnosed Date Sprain of right ankle 05/14/2023 Encounters Date Type Department Care Team Description 01/28/2025 External Device Data [facility] ABSTRACTION Provider, Abstract 12/24/2024 External Device Data [facility] ABSTRACTION Provider, Abstract 12/24/2024 External Device Data [facility] ABSTRACTION Provider, Abstract 12/11/2024 External Device Data [facility] ABSTRACTION Provider, Abstract from Last 3 Months Social History Tobacco Use Types Packs/Day Years Used Date Smoking Tobacco: Every Day Cigarettes 0.5 27.9 Started: 1997 Smokeless Tobacco: Never Tobacco Cessation:Ready to Q uit: Not Asked; Counseling Given: Not Answered Alcohol Use Standard Drinks/Week Comments Yes 0 (1 standard drink = 0.6 oz pur e alcohol) Feeling Safe Answer Date Recorded Are you in a relationship wi th someone who hurts you emotionally and/or physically? No 09/28/2024 Comments No Sex and Gender Information Value Date Recorded Sex Assigned at Not on file Legal Sex Female 8:35 PM CDT Gender Identity Not on file Sexual Orientation Not on file Last Filed Vital Signs Vital Sign Reading Time Taken Comments Blood Pressure 119/80 09/28/2024 3:20 PM CDT Pulse 106 08/21/2023 9:58 PM CDT Temperature 36.7 C (98 F) 09/28/2024 3:20 PM CDT Respiratory Rate 18 09/28/2024 3:20 PM CDT Oxygen Saturation 96% 09/28/2024 3:20 PM CDT Inhaled Oxygen Concentration - - Weight 115.2 kg (254 lb) 09/28/2024 3:20 PM CDT Height 170.2 cm (5' 7 ) 09/28/2024 3:20 PM CDT Body Mass Index 39.78 09/28/2024 3:20 PM CDT Plan of Treatment Health Maintenance Due Date Last Done Comments Pre-Diabetes and Diabetes Screening 1982 DTAP/TDAP/TD VACCINES (1 - Tdap) 2001 HEPATITIS B VACCINES (1 of 3 - 19+ 3-dose series) 04/25 HPV/Cotest (21-29) 2003 HPV VACCINES (1 - 3-dose SCDM series) 2009 CERVICAL CANCER SCREENING 2012 HPV/Cotest (30-65) 2012 PAP SMEAR 2012 BREAST CANCER SCREENING 2022 INFLUENZA VACCINE (#1) 2024 12/23/2019 Insurance MEDICAID [facility] DUAL COMPLETE O [facility] [id number]
[2025-03-05] MEDS: potassium chloride oral liq 20 mEq/15 mL UDC 40 MEQ PO (10:49)
[2025-03-05 11:22] LABS: Anion Gap 16.8 (5-19); Blood Urea Nitrogen 3 mg/dL (6-20); Calcium 8.7 mg/dL (8.5-10.5); Carbon Dioxide 26 mmol/L (22-29); Chloride 100 mmol/L (98-107); Creatinine Clr Calc Pharmacy 151.3846; Glucose 53 mg/dL (65-115); Magnesium 1.9 mg/dL (1.7-2.3); Osmolality Calculated 284 mOsm/kg (285-295); Sodium 140 mmol/L (136-145)
[2025-03-05 11:25] LABS: Potassium 2.8 mmol/L (3.5-5.1)
[2025-03-05 11:30] VITALS: BP 106/66; PULSE 83; O2SAT 98
== END 2025-03-05 12:18 | disposition home or self-care (01) ==
PROVIDERS: Emergency Provider Family Medicine; PCP Nurse Practitioner Family
DX: E87.6 Hypokalemia (principal); F17.210 Nicotine dependence, cigarettes, uncomplicated; E11.40 Type 2 diabetes mellitus with diabetic neuropathy, unspecified; I10 Essential (primary) hypertension
CPT/HCPCS: 36415; 80048; 83735; 93005; 99284; J9999

== ENCOUNTER → 2025-03-19 10:15 | Outpatient (BNVA) | payer MEDICARE, MEDICAID, SELFPAY ==
[2024-05-15 11:47] VITALS: BP 140/78; BMI 42.9
== END ==
PROVIDERS: PCP Nurse Practitioner Family; Visit Provider Nurse Practitioner Family
DX: E87.6 Hypokalemia (principal); Z87.19 Personal history of other diseases of the digestive system
CPT/HCPCS: 80048